=== PATIENT | female | born 1990 | race Caucasian/White ===

== ENCOUNTER 2021-03-31 07:07 | Outpatient (REF) | payer OTHER, SELFPAY ==
[2021-03-31 07:26] LABS: MANUAL DIFF FLAG NO
[2021-03-31 08:18] LABS: Basophils Percent Auto 0.5 % (0-2); Eosinophils Absolute Auto 0.2 X10*3/uL (0.0-0.4); Eosinophils Percent Auto 3.1 % (0-4); Hematocrit 43.8 % (37.0-47.0); Hemoglobin 14.4 g/dl (12.0-16.0); Imm Gran Abs Auto 0.02 X10*3/uL (0.00-0.03); Imm Gran Pct Auto 0.3 % (0.0-0.4); Lymphocytes Absolute Auto 2.6 X10*3/uL (1.2-4.9); Lymphocytes Percent Auto 35.4 % (20-40); Mean Corpuscular HGB Conc 32.9 g/dl (31.0-35.0); Mean Corpuscular Hemoglobin 29.1 pg (27.0-33.0); Mean Corpuscular Volume 88.7 fL (80.0-98.0); Mean Platelet Volume 9.8 fL (9.4-12.3); Monocytes Absolute Auto 0.5 X10*3/uL (0.1-1.2); Monocytes Percent Auto 6.7 % (2-11); Platelet Count 250 X10*3/uL (160-400); Red Blood Count 4.94 X10*6/uL (4.20-5.50); Red Cell Distribution Width 11.8 % (11.0-16.0); White Blood Count 7.5 X10*3/uL (4.8-10.8)
[2021-03-31 08:41] LABS: Alanine Aminotransferase 21 U/L (0-31); Albumin Level 4.5 g/dL (3.5-5.0); Alkaline Phosphatase 85 U/L (39-117); Anion Gap 15 (12-20); Aspartate Amino Transferase 17 U/L (5-31); Bilirubin Total 0.6 mg/dL (0.0-1.0); Blood Urea Nitrogen 11 mg/dL (9-16); Calcium 9.6 mg/dL (8.4-10.2); Carbon Dioxide 25 mmol/L (22-29); Chloride 105 mmol/L (96-108); Cholesterol 182 mg/dL; Estimated Glomerular Filt Rate > 60; Glucose Fasting 97 mg/dL (60-99); HDL Cholesterol 50 mg/dL; LDL Cholesterol Calculated 122 mg/dl; Potassium 4.6 mmol/L (3.3-5.1); Sodium 140 mmol/L (135-145); Total Protein 7.3 g/dL (6.5-8.0); Triglycerides 51 mg/dL
[2021-03-31 12:00] LABS: HIV AB/AG Nonreactive (Nonreactive); HIV Num 1 0.05 S/CO (0.00-0.99)
[2021-03-31 12:07] LABS: ~HepC Num1 0.08 S/CO (0.00-0.79); ~Hepatitis C Antibody Nonreactive (Nonreactive)
[2021-03-31 12:27] LABS: CT PCR NOT DETECTED (Not Detect.)
[2021-03-31 12:28] LABS: NG PCR NOT DETECTED (Not Detect.)
[2021-04-02 09:01] LABS: Syphilis Screen Nonreactive (Nonreactive)
== END 2021-03-31 07:08 | disposition home or self-care (01) ==
LOC: HO.LAB 07:07
PROVIDERS: Visit Provider Nurse Practitioner Family
DX: M79.7 Fibromyalgia (principal); I10 Essential (primary) hypertension; E78.00 Pure hypercholesterolemia, unspecified; Z11.3 Encounter for screening for infections with a predominantly sexual mode of transmission; Z76.89 Persons encountering health services in other specified circumstances
CPT/HCPCS: 80053; 80061; 84443; 85025; 86780; 86803; 87389; 87491; 87591

== ENCOUNTER 2021-07-18 10:59 | Outpatient (REF) | payer OTHER, SELFPAY ==
--- NOTE | ~2021-07-18 | XR_ITS ---
EXAMINATION: XR FOOT, LEFT CLINICAL INFORMATION: Pain in the left foot COMPARISON: None TECHNIQUE: AP, lateral, and oblique views of the left foot. FINDINGS: There is a nondisplaced fracture of the shaft of the fifth digit proximal phalanx. No additional fractures. Joint spaces are maintained. Mild soft tissue swelling in the region of the fracture. XR/XR foot LT 2V IMPRESSION: Nondisplaced fracture of the shaft of the fifth digit proximal phalanx. The report will be called to the ordering clinician by a [facility] Workflow Coordinator.
== END 2021-07-18 11:00 | disposition home or self-care (01) ==
LOC: HO.XRAY 10:59
PROVIDERS: PCP Nurse Practitioner Family; Visit Provider Nurse Practitioner Family
DX: M79.672 Pain in left foot (principal)
CPT/HCPCS: 73620

== ENCOUNTER → 2021-08-03 08:35 | Outpatient (BNVA) | payer OTHER, SELFPAY | PROVIDERS: PCP Nurse Practitioner Family; Visit Provider Physician Assistant | DX: Z13.89 Encounter for screening for other disorder (principal) ==

== ENCOUNTER 2021-11-15 09:17 | Outpatient (REF) | payer OTHER, SELFPAY ==
--- NOTE | ~2021-11-15 | XR_ITS ---
EXAMINATION: XR FINGER, RIGHT CLINICAL INFORMATION: Injury of right wrist pain in fingers COMPARISON: None TECHNIQUE: Three views of the right ring finger. FINDINGS: No acute visible fracture or dislocation. Joint spaces and alignment are maintained. Soft tissues are unremarkable. XR/XR finger RT min 2V IMPRESSION: No acute visible fracture or dislocation.
== END 2021-11-15 09:18 | disposition home or self-care (01) ==
LOC: HO.HMGCX 09:17
PROVIDERS: PCP Nurse Practitioner Family; Visit Provider Internal Medicine
DX: S69.91XA Unspecified injury of right wrist, hand and finger(s), initial encounter (principal)
CPT/HCPCS: 73140

== ENCOUNTER 2022-01-25 18:49 | Outpatient (REF) | payer OTHER, SELFPAY ==
--- NOTE | ~2022-01-25 | MR_ITS ---
EXAMINATION: MRI HAND WITHOUT CONTRAST, RIGHT CLINICAL INFORMATION: Right 4th digit limited range of motion. Swelling. Injury. COMPARISON: Right finger radiographs dated 11/15/2021. TECHNIQUE: Multisequence MR imaging of the right hand was obtained without contrast on a high-field strength scanner. FINDINGS: BONE: Minimally increased degenerative signal within the distal aspect of the 4th middle phalanx as well as the 4th distal phalanx without an associated osseous erosion. No fracture or dislocation. No concerning lytic or blastic osseous lesion. MUSCLES/TENDONS: Trace fluid within the 4th and 5th flexor digitorum tendon sheath consistent with minimal tenosynovitis. No transverse tendon tear or tendon retraction. LIGAMENTS: Grossly intact collateral ligaments. SOFT TISSUES: No soft tissue mass or fluid collection. MR/MR hand RT wo con IMPRESSION: 1. Minimal marrow edema within the distal aspect of the 4th middle phalanx as well as the 4th distal phalanx without an associated osseous erosion. Findings could indicate a mild infectious or inflammatory arthropathy. No associated fracture or dislocation. 2. Minimal 4th and 5th flexor digitorum tenosynovitis. No transverse tendon tear or tendon retraction.
== END 2022-01-25 18:50 | disposition home or self-care (01) ==
LOC: HO.MRI 18:49
PROVIDERS: Visit Provider Physician Assistant
DX: S69.91XA Unspecified injury of right wrist, hand and finger(s), initial encounter (principal); M62.89 Other specified disorders of muscle; X58.XXXA Exposure to other specified factors, initial encounter; Y93.9 Activity, unspecified; Y92.9 Unspecified place or not applicable; Y99.9 Unspecified external cause status
CPT/HCPCS: 73218

== ENCOUNTER 2022-05-16 13:30 | Outpatient (RCR) | payer OTHER, SELFPAY ==
--- NOTE | 2022-04-25 14:18 | MHC.OT.EP ---
[address] [phone] Occupational Therapy Plan of Care Date of Evaluation: 04/25/22 Diagnosis: Right ring finger injury Pain Location: Pain right ring finger DIP 0/10 at rest 5/10 with activity Pain Score: 5 Pain Scale Used: Numeric (0 - 10) Aggravating Factors: Any cardio exercises makes the digit throb Forceful grasp Alleviating Factors: Heat/ice Nothing recently Assessment: Pt. is a 31 y/o female who sustained right ring finger injury while playing softball. X-rays were negative; MRI revealed possible mild infectious or inflammatory arthropathy. No associated fracture or dislocation. There was a lapse in treatment unfortunately since date of referral on 02/13; pt. continues to experience up to 5/10 pain and stiffness in DIP joint. Pt would benefit from skilled OT for pain and inflammation management, ROM, and improving fine motor coordination. Frequency and Duration: The patient will be seen 2x/wk for 3 weeks Short Term Goals: Pain free with typing and handwriting Improve right DIP flexion by 15 degrees Improve FMC as evidenced by >5 sec improvement on FDT IND with progression of HEP Snf Goals: Same as above Treatment Plan: Therapeutic Exercise Therapeutic Activity Home Exercise Program Patient Education Edema Control Ultrasound Paraffin Fluidotherapy MHP Joint Mobilization Soft Tissue Mobilization Electronically Signed By: Garima Beth MS OTR/L Please Sign and return to therapist. Thank you once again for your referral.
--- NOTE | 2022-05-16 14:12 | MHC.OT.DC ---
[address] [phone] F: [phone] Occupational Therapy Discharge Note Provider: Armand Conde Diagnosis: Right ring finger injury Date of Evaluation: 04/25/22 Date of Discharge: 05/16/22 Treatments to Date: 6 Discharge Status: Achieved Goals Independent with HEP Discharge Summary: Pt progressed very in OT and met all LTG's set on admission. She continues to have some residual 'soreness' with prolonged use, although is pain free at rest. Digit ROM is WNL's and she is able to make a full composite fist without pain. Gross grasp strength improved to 65# on the R, compared to 75# on the L. At this time, pt. is IND with home exercise program and in agreement with discharge. Electronically Signed By: Garima Beth MS OTR/L Reviewed/agree with student documentation: N/A Therapist: Please Sign and return to therapist, thank you for your referral.
== END 2022-08-13 09:13 | disposition home or self-care (01) ==
LOC: HO.OT 13:30
PROVIDERS: PCP Nurse Practitioner Family; Visit Provider Physician Assistant
DX: S69.91XD Unspecified injury of right wrist, hand and finger(s), subsequent encounter (principal)
CPT/HCPCS: 97035; 97110; 97165; 97530

== ENCOUNTER 2022-07-09 10:00 | Outpatient (RCR) | payer OTHER, SELFPAY ==
--- NOTE | 2022-07-09 11:26 | MHC.PT.DC ---
[facility] [place] Office [place] Office [place] Office [address] Radha Benton [address] [phone] F: [phone] F: [phone] F: [phone] F: [phone] Physical Therapy Discharge Report Diagnosis: RIGHT KNEE PAIN (KP) Date of Surgery: NA Date of Evaluation: 05/03/22 Date of Discharge: 07/09/22 Treatments to Date: 11 Cancellations to Date: 6 No Shows to Date: 1 Discharge Status: Achieved Goals Improved Function Independent with HEP Discharge Summary: Pt HAS PROGRESSED VERY NICELY IN PT AND HAS MET HER PT GOALS AT THIS TIME -> SHE HAS BEEN ABLE TO RETURN TO RUNNING AND REG ADLs W/O HER Rt KNEE SXS- HER FLEXIB AND STRENGTH AND SYMMETRY ARE OVERALL IMPROVED - SHE IS MOTIVATED AND COMPLIANT W HER HEP AND SHE FEELS READY FOR D/C FROM PT W HER HEP. HER LEFI SCORE IMPROVED FROM 65/80 AT EVAL TO 78/80 TODAY AT D/C. Electronically signed by: JENNIFER ALVARADO,PT Please sign and return to therapist. Thank you for your referral.
== END 2022-07-10 09:25 | disposition home or self-care (01) ==
LOC: HO.PT 10:00
PROVIDERS: Visit Provider Nurse Practitioner Family
DX: M25.561 Pain in right knee (principal)
CPT/HCPCS: 97110; 97140; 97161

== ENCOUNTER 2023-06-03 08:17 | Outpatient (AMB) | payer OTHER, SELFPAY ==
--- NOTE | 2023-06-03 08:18 | A.OFFPC_ITS ---
Vital Signs 06/03/23 08:23 Height 5 ft 6 in Weight 197 lb 6 oz BMI 31.9 BP 112/68 Blood Pressure Location Lt brachial Position Sitting Pulse 64 Pulse Source Pulse Oximeter Pulse Oximetry (%) 98 Oxygen Delivery Method Room Air Intake Visit Reasons: transfer from [facility] [place], physical Intake Note: Patient is here as a transfer from [facility], would like blood work done, she has been feeling cold, not like her,has to use extra blankets, during . Allergies iodine Allergy (Intermediate, Verified 06/03/23 08:42) rash Latex Gloves Allergy (Unknown, Uncoded 06/03/23 08:25) rash Shellfish Allergy (Unknown, Uncoded 06/03/23 08:25) tongue swelling; throat felt funny Medication List - Last Reconciled 06/03/23 by Lis Gipson, ISHAAN-BC norethindrone (contraceptive) (Salma) 0.35 mg PO DAILY prenat.vits,seth,xcc-fric-vwhtm 1 tab PO DAILY valacyclovir 500 mg PO DAILY Tobacco use date assessed: 06/03/23 Dental Screening Dental Screen Date: 06/03/23 Did you have a dental visit in the last 12 months?: Yes Did you have a dental problem in the last 6 months where you did not have access to dental care?: No Was dental information given to patient?: Patient has dentist HPI HPI Comments History of Present Illness Details 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 32-year-old female with fibromyalgia, po stpartum depression, herniated cervical disc, scoliosis, HSV 2 Health maintenance Pap 01/04/2021 within normal limits Specialists Orthopedics Manager [facility] Counselor Podiatry - did not go. Dermatology - annual survellience Chiro Rheum - active in [place] in the past about 8 years ago. Family hx: 3 toddlers + 2.5 month old baby (oldest son w/ benign stills murmur, cleared by cards) Mom hypothyroid, HLD, mitral valve regurg Dad skin cancer, HTN Sister Immune mediated thrombocytopenia Brother alive and well MGF 96 of bladder cancer MGM 96 dementia Maternal aunt - [place], Fibromyalgia, cardiac stuff, obesity Denies sig hx in grandparents on Dads side. Labs 03/31/2021 showed a normal CBC, normal CMP, normal lipid profile, normal TSH, negative STD workup Here today to est care Feeling cold all of the time; reports this only happens when she is . Reports normal labs during . Physically in pain so cold During the day, performs squats to get blood moving. Had baby 2.5 months ago. Not breast feeding/pumping. LMP current, no chance of . No labs done in post period. Has not worked w/ UNIX ENGINEER about this. 206 prepreg weight gained 20 lbs w/ this preg doesnt feel like she is losing weight Decreased appetite Reports normal activity - runs a few times per week. Mood - admits some PPD sx (decreased appetite). reports this has subsided. Active w/ counselor Q week Chronic feet pain - manages w/ wearing slippers. Did not see podiatry. Admits chronic pain in joints. Active w/ chiro for back. FM - dx about 8 years ago., Was tx. However been off meds and managing just fine. ? dx. [facility] Medical History Tachycardia Right knee pain Entrapment of collateral ligament of finger Injury of right ring finger Left foot pain Acquired supination of right foot Nondisplaced fracture of phalanx of toe of left foot Post depression Encounter to establish care (~03/29/21) Scoliosis Fibromyalgia Herniated cervical disc Surgical History No pertinent past surgical history Family History Mother Hypothyroidism Hyperlipidemia Arthritis Asthma Murmur Father HTN (hypertension) Other Bladder cancer Social History Household Members: Children Housing: House Alcohol intake: never Patient Tobacco Use Status: Never used Tobacco e-Cigarette/Vaping Use: Never Used service: No Current occupational status: employed 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 1. Little interest or pleasure in doing things: not at all 2. Feeling down, depressed, or hopeless: not at all 3. Trouble falling or staying asleep, or sleeping too much: several days 4. Feeling tired or having little energy: several days 5. Poor appetite or overeating: not at all 6. Feeling bad about yourself - or that you are a failure or have let yourself or your family down: not at all 7. Trouble concentrating on things, such as reading the newspaper or watching television: several days 8. Moving or speaking so slowly that other people could have noticed. Or the opposite - being so fidgety or restless that you have been moving around a lot more than usual: not at all 9. Thoughts that you would be better off or of hurting yourself in some way: not at all Total score: 3 Depression Screening Interpretation: Negative Depression Screening Done: Yes 96112 - PHQ-9 Billing: Yes Source: Developed by Drs. Manuelito Luna, Karla Oneal, Ferny Beauchamp and colleagues, with an educational otilio from [employer]. Thrive Questionnaire Date Thrive assessed: 06/03/23 I am a: Patient What is your living situation today?: I have a steady place to live Within the past 12 months, did the food you bought not last and you didn't have the money to get more?: Never true Within the past 12 months, did you worry whether your food would run out before you got money to buy more?: Never true Do you have trouble paying for medicines?: No Do you have trouble getting transportation to medical appointments?: No Do you have trouble paying your heating and electricity bill?: No Do you have trouble taking care of your child, family member or friend?: No Do you have trouble with day-to-day activities such as bathing, preparing meals, shopping, managing finances, etc.?: No Are you currently unemployed and looking for a job?: No Are you interested in more education?: No Currently or been in a relationship where the following occur: no concerns reported THRIVE Score: 0 AUDIT C Alcohol Use Questionnaire (AUDIT-C) 1. How often do you have a drink containing alcohol?: Monthly or less 2. How many drinks containing alcohol do you have on a typical day when you are drinking?: 1 or 2 3. How often do you have six or more drinks on one occasion?: Never Total Score: 1 Score Reviewed/Action Taken: Yes SHALINI-7 AMB Questionnaire SHALINI-7 Date SHALINI - 7 assessed: 06/03/23 Feeling nervous, anxious, or on edge: 0 = Not at all Not being able to stop or control worryin = Several days Worrying too much about different things: 0 = Not at all Trouble relaxin = Several days Being so restless that it is hard to sit still: 0 = Not at all Becoming easily annoyed or irritable: 1 = Several days Feeling afraid as if something awful might happen: 0 = Not at all Total SHALINI-7 score (0-4 normal; 5-9 mild; 10-14 moderate; 15-21 severe): 3 Source: Developed by Drs. Manuelito Luna, Karla Oneal, Ferny Beauchamp and colleagues, with an educational otilio from [employer]. SHALINI-7 Assessment Billing SHALINI-7 Assessment Tool: SHALINI-7 Assessment 49610 Physical exam (Primary Care) Vital Signs: Last Vital Signs Pulse 64 06/03/23 08:23 BP 112/68 06/03/23 08:23 Pulse Ox 98 06/03/23 08:23 Oxygen Delivery Method Room Air 06/03/23 08:23 BMI result Body Mass Index 31.9 BMI Assessment/Plan discussion: High BMI High, discussed plan: physical activity Tobacco/Smoking Status: Tobacco use Status Tobacco use date assessed 06/03/23 06/03/23 08:33 Patient Tobacco Use Status Never used Tobacco 06/03/23 08:20 e-Cigarette/Vaping Use Never Used 06/03/23 08:20 PHQ-9: PHQ-9 Score PHQ-9: Total score 3 06/03/23 08:33 Depression Screening Interpretation: Negative Thrive Assessment: Date of Thrive Assessment Date Thrive assessed 06/03/23 06/03/23 08:33 Currently or been in a relationship where the following occur: no concerns reported Const Other: awake alert NAD PERRLA, EOMI MMM thyroid palpable, nontender, no nodules, trachea midline RRR LS CTAB No edema BLE Mood and affect appropriate Assessment and Plan Assessment & Plan (1) Sensation of feeling cold: Code(s): R68.89 - Other general symptoms and signs Plan: We will check CBC, iron studies, thyroid labs to include antibodies. She is 2- 1/2 months . thyroiditis is definitely a differential. We will update her via the portal with the lab results. If labs are within normal limits we will need to consider alternative differentials and or treatment plan to evaluate this concern. (2) MDD (major depressive disorder), recurrent episode: Comment: Symptoms controlled without medications. Active with a counselor weekly. Code(s): F33.9 - Major depressive disorder, recurrent, unspecified Qualifiers: Major depression episode severity: mild Qualified Code(s): F33.0 - Major depressive disorder, recurrent, mild (3) HSV (herpes simplex virus) infection: Comment: Maintained on valacyclovir 500 mg p.o. daily Code(s): B00.9 - Herpesviral infection, unspecified Plan This note is constructed using voice recognition software. While every effort has been made to ensure accuracy in healthcare recruiter, still errors may have been included Sometimes, these errors may affect the content or meaning of the given sentence . Total time spent caring for the patient today was 45 minutes. This includes time spent before the visit reviewing the chart, time spent during the visit, and time spent after the visit on documentation Orders: Orders Comprehensive [place]. Panel Fast Today R68.89 - Other general symptoms and signs Complete Blood Count Auto Diff Today R68.89 - Other general symptoms and signs Thyroid Peroxidase Antibodies Today R68.89 - Other general symptoms and signs Thyroglobulin Antibodies Today R68.89 - Other general symptoms and signs Thyroid Stimulating Immunoglob Today R68.89 - Other general symptoms and signs Thyroxine Binding Globulin Today R68.89 - Other general symptoms and signs Vitamin D 1,25 dihydroxy Today R68.89 - Other general symptoms and signs TSH reflex Free T4 Today R68.89 - Other general symptoms and signs IRON PROFILE Today R68.89 - Other general symptoms and signs Free T4 (Free Thyroxine) Today R68.89 - Other general symptoms and signs Thyrotropin Receptor Antibody Today R68.89 - Other general symptoms and signs Coding Level of Care Code Est Pt Level 5 (93679) Diagnoses Sensation of feeling cold R68.89 Mild episode of recurrent major depressive disorder F33.0 Major depression episode severity: mild HSV (herpes simplex virus) infection B00.9 Additional Codes SHALINI-7 Assessment Billing - SHALINI-7 Assessment Tool: SHALINI-7 Assessment 64145 ([id number])
[2023-06-03 08:23] VITALS: BP 112/68; PULSE 64; O2SAT 98; BMI 31.9
== END 2023-06-03 09:20 | disposition home or self-care (01) ==
PROVIDERS: PCP Nurse Practitioner Family; Visit Provider Nurse Practitioner Family
DX: R68.89 Other general symptoms and signs (principal); F33.0 Major depressive disorder, recurrent, mild; B00.9 Herpesviral infection, unspecified
CPT/HCPCS: 99215

== ENCOUNTER 2023-06-03 09:02 | Outpatient (REF) | payer OTHER, SELFPAY ==
[2023-06-03 11:32] LABS: MANUAL DIFF FLAG NO
[2023-06-03 11:39] LABS: Basophils Percent Auto 0.7 % (0-2); Eosinophils Absolute Auto 0.2 X10*3/uL (0.0-0.4); Hematocrit 42.6 % (37.0-47.0); Hemoglobin 14.2 g/dl (12.0-16.0); Imm Gran Abs Auto 0.01 X10*3/uL (0.00-0.03); Imm Gran Pct Auto 0.2 % (0.0-0.4); Lymphocytes Absolute Auto 2.1 X10*3/uL (1.2-4.9); Lymphocytes Percent Auto 37.3 % (20-40); Mean Corpuscular HGB Conc 33.3 g/dl (31.0-35.0); Mean Corpuscular Volume 90.1 fL (80.0-98.0); Mean Platelet Volume 10.5 fL (9.4-12.3); Monocytes Absolute Auto 0.4 X10*3/uL (0.1-1.2); Monocytes Percent Auto 7.3 % (2-11); Neutrophils Absolute Auto 2.9 x10*3/uL (2.0-8.3); Neutrophils Percent Auto 51.5 % (45-73); Platelet Count 251 X10*3/uL (160-400); Red Blood Count 4.73 X10*6/uL (4.20-5.50); Red Cell Distribution Width 11.8 % (11.0-16.0); White Blood Count 5.6 X10*3/uL (4.8-10.8)
[2023-06-03 12:19] LABS: Alanine Aminotransferase 42 U/L (0-31); Albumin Level 4.4 g/dL (3.5-5.0); Alkaline Phosphatase 74 U/L (39-117); Anion Gap 12 (12-20); Aspartate Amino Transferase 29 U/L (5-31); Bilirubin Total 0.5 mg/dL (0.0-1.0); Blood Urea Nitrogen 12 mg/dL (9-16); Calcium 9.2 mg/dL (8.4-10.2); Carbon Dioxide 28 mmol/L (22-29); Chloride 106 mmol/L (96-108); Estimated Glomerular Filt Rate > 60; Glucose Fasting 94 mg/dL (60-99); Iron 71 mcg/dL (30-160); Percent Iron Saturation 25 % (15-50); Potassium 4.3 mmol/L (3.3-5.1); Sodium 142 mmol/L (135-145); Total Iron Binding Capacity 281 mcg/dL (228-428); Total Protein 7.4 g/dL (6.5-8.0); Unsaturated Iron Binding 210 ug/dL
[2023-06-03 12:21] LABS: Free T4 (Free Thyroxine) 0.91 ng/dL (0.71-1.85); TSH reflex Free T4 1.31 uIU/mL (0.32-4.0)
[2023-06-04 22:19] LABS: Thyroglobulin Antibodies <1 IU/mL (< or = 1); Thyroid Peroxidase Antibodies 1 IU/mL (<9)
[2023-06-06 15:58] LABS: Thyroid Stimulating Immunoglob <89 % baseline (<140)
[2023-06-07 17:14] LABS: VITAMIN D (1,25 OH) D3 25 pg/mL; Vit D (1,25-Dihydroxy) Total 25 pg/mL (18-72); Vitamin D (1,25 OH) D2 <8 pg/mL
[2023-06-08 06:44] LABS: Thyroxine Binding Globulin 18.7 mcg/mL (13.5-30.9)
== END 2023-06-03 09:03 | disposition home or self-care (01) ==
LOC: HO.WFDLDS 09:02
PROVIDERS: Visit Provider Nurse Practitioner Family
DX: R68.89 Other general symptoms and signs (principal)
CPT/HCPCS: 36415; 80053; 82652; 83520; 83540; 84439; 84442; 84443; 84445; 85025; 86376; 86800

== ENCOUNTER 2023-09-03 07:38 | Outpatient (AMB) | payer OTHER, SELFPAY ==
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
[2023-09-03 07:56] VITALS: BP 112/64; PULSE 86; O2SAT 98; BMI 29.9
== END 2023-09-03 08:10 | disposition home or self-care (01) ==
PROVIDERS: PCP Nurse Practitioner Family; Visit Provider Nurse Practitioner Family
DX: Z00.01 Encounter for general adult medical examination with abnormal findings (principal); Z09 Encounter for follow-up examination after completed treatment for conditions other than malignant neoplasm; E55.9 Vitamin D deficiency, unspecified; R76.8 Other specified abnormal immunological findings in serum; R05.1 Acute cough
CPT/HCPCS: 99213; 99395

== ENCOUNTER 2023-09-09 10:26 | Outpatient (AMB) | payer OTHER, SELFPAY ==
[2023-09-09 10:29] VITALS: BP 118/74; PULSE 76; TEMP 36.7; O2SAT 98; BMI 30.8
--- NOTE | 2023-09-09 10:29 | MHC.OFFWIV ---
Intake Vital Signs 09/09/23 10:29 Height 5 ft 6 in Weight 191 lb BMI 30.8 BP 118/74 Blood Pressure Location Lt brachial Position Sitting Pulse 76 Pulse Source Pulse Oximeter Temp 98.0 F Temp Source Temporal Artery Scan Pulse Oximetry (%) 98 Intake Visit Reasons: EP Left Heel Laceration Intake Note: pt is here for left heel laceration Patient Tobacco Use Status: Never used Tobacco Allergies iodine Allergy (Intermediate, Verified 09/09/23 10:29) rash Latex Gloves Allergy (Unknown, Uncoded 06/03/23 08:25) rash Shellfish Allergy (Unknown, Uncoded 06/03/23 08:25) tongue swelling; throat felt funny Do you need a note to return to daycare/school/sports/work: No HPI HPI Comments History of Present Illness Details Patient is a 32-year-old female who states she was helping her built metal fence this morning when 1 of the pieces from the fence went into left ankle, cutting it. She is able to walk and has full range of motion with her foot. Last tetanus was last year, she states. [facility] Medical History Tachycardia Right knee pain Entrapment of collateral ligament of finger Injury of right ring finger Left foot pain Acquired supination of right foot Nondisplaced fracture of phalanx of toe of left foot Post depression Encounter to establish care (~03/29/21) Scoliosis Fibromyalgia Herniated cervical disc Surgical History No pertinent past surgical history Family History Mother Hypothyroidism Hyperlipidemia Arthritis Asthma Murmur Father HTN (hypertension) Other Bladder cancer Social History Household Members: Children Housing: House Alcohol intake: never Patient Tobacco Use Status: Never used Tobacco e-Cigarette/Vaping Use: Never Used service: No Current occupational status: employed 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 Current occupational exposures/hazards: No Cognitive needs: No Hearing needs: No Vision needs: Yes Review of Systems Const All systems reviewed & are unremarkable except as noted in HPI and below Physical Exam Const General: cooperative, healthy appearing, comfortable, no acute distress and well developed Orientation/consciousness: patient oriented x3 Limitations: no limitations Eyes General: appearance normal, both eyes and all related structures Resp Effort & Inspection: normal respiratory effort and able to speak in complete sentences Skin Other: Neuro General: patient oriented x3 Extrem Left lower extremity: ankle Details: no edema, normal ROM and laceration (2.5cm lac to medial aspect of ankle); no tenderness and no warmth Office Procedures Laceration Repair Details: cleaned area with betadine, irrigated the area with normal saline, then we cleaned with Betadine again. Applied topical 4% lidocaine spray then injected 2 mL of 2% lidocaine with good effect. Using sterile technique, applied 3 sutures which closed the wound. Laceration repair performed by: Nina Pavon Explained risks and benefits to parent: Yes Informed consent given: Yes Consent signed: No Sedation: No Anesthesia: 2% lidocaine Irrigation: saline Preparation: betadine Wound exploration: none (no FB noted) Deep closure: No Skin closure: nylon (4.0 prolene) Technique: sterile Topical treatment: other (Applied sterile gauze with tape to cover wound for the next hour and contain any residual bleeding) Tetanus toxoid ordered: No (last was 2022) Patient tolerated procedure: well [place]: [place] [id number] Repair <2.5cm Procedure code (CPT) selection complete Assessment & Plan Assessment & Plan (1) Laceration of ankle without complication: Code(s): S91.019A - Laceration without foreign body, unspecified ankle, initial encounter Qualifiers: Encounter type: initial encounter Laterality: left Qualified Code(s): S91.012A - Laceration without foreign body, left ankle, initial encounter Plan: Applied 3 sutures, recommended keeping dry and clean and not bathing or swimming in any standing water until sutures are removed. Recommended removing sutures in 10-12 days and keeping area clean and dry. Plan see above. Coding Level of Care Code Est Pt Level 3 (57305) Diagnoses Laceration of left ankle without complication, initial encounter S91.012A Encounter type: initial encounter Laterality: left
== END 2023-09-09 11:35 | disposition home or self-care (01) ==
PROVIDERS: PCP Nurse Practitioner Family; Visit Provider Physician Assistant
DX: S91.012A Laceration without foreign body, left ankle, initial encounter (principal)
CPT/HCPCS: 12001; 99213

== ENCOUNTER 2023-09-19 09:29 | Outpatient (AMB) | payer OTHER, SELFPAY ==
--- NOTE | 2023-09-19 10:20 | AM.OFFWIN_ITS ---
Intake Vital Signs 09/19/23 10:21 Height 5 ft 6 in BP 118/70 Blood Pressure Location Rt brachial Position Sitting Pulse 76 Pulse Source Pulse Oximeter Temp 98.4 F Temp Source Oral Pulse Oximetry (%) 97 Intake Visit Reasons: EP lft foot stitches removal Intake Note: pt is here for left foot stitches removal Patient Tobacco Use Status: Never used Tobacco Allergies iodine Allergy (Intermediate, Verified 09/19/23 10:21) rash Latex Gloves Allergy (Unknown, Uncoded 06/03/23 08:25) rash Shellfish Allergy (Unknown, Uncoded 06/03/23 08:25) tongue swelling; throat felt funny Do you need a note to return to daycare/school/sports/work: No HPI HPI Comments History of Present Illness Details Patient is a 33-year-old female here for suture removal, she had 3 sutures applied 11 days ago. She states it has healed well and does not look infected at all, she states there is no pain. [facility] Medical History Tachycardia Right knee pain Entrapment of collateral ligament of finger Injury of right ring finger Left foot pain Acquired supination of right foot Nondisplaced fracture of phalanx of toe of left foot Post depression Encounter to establish care (~03/29/21) Scoliosis Fibromyalgia Herniated cervical disc Surgical History No pertinent past surgical history Family History Mother Hypothyroidism Hyperlipidemia Arthritis Asthma Murmur Father HTN (hypertension) Other Bladder cancer Social History Household Members: Children Housing: House Alcohol intake: never Patient Tobacco Use Status: Never used Tobacco e-Cigarette/Vaping Use: Never Used service: No Current occupational status: employed 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 Current occupational exposures/hazards: No Cognitive needs: No Hearing needs: No Vision needs: Yes Review of Systems Const All systems reviewed & are unremarkable except as noted in HPI and below Physical Exam Vital Signs: Last Vital Signs Temp 98.4 F 09/19/23 10:21 Pulse 76 06/28/24 10:21 BP 118/70 09/19/23 10:21 Pulse Ox 97 09/19/23 10:21 Const General: cooperative, healthy appearing, comfortable, no acute distress and well developed Orientation/consciousness: patient oriented x3 Limitations: no limitations Skin Other: Three sutures on left posterior ankle, wound is healed well, no erythema warmth or discharge noted Neuro General: patient oriented x3 Assessment & Plan Assessment & Plan (1) Encounter for removal of sutures: Code(s): Z48.02 - Encounter for removal of sutures Plan: Removed 3 sutures, wound is clean dry and intact, no signs of infection. Plan See above Coding Level of Care Code Est Pt Level 3 (17560) Diagnoses Encounter for removal of sutures Z48.02
[2023-09-19 10:21] VITALS: BP 118/70; PULSE 76; TEMP 36.9; O2SAT 97
== END 2023-09-19 11:00 | disposition home or self-care (01) ==
PROVIDERS: PCP Nurse Practitioner Family; Visit Provider Physician Assistant
DX: Z48.02 Encounter for removal of sutures (principal)
CPT/HCPCS: 15853; 99213

== ENCOUNTER 2023-10-10 09:49 | Outpatient (AMB) | payer OTHER, SELFPAY ==
--- NOTE | 2023-10-10 09:53 | AM.OFFWIN_ITS ---
Intake Vital Signs 10/10/23 09:54 Height 5 ft 6 in Weight 189 lb BMI 30.5 BP 126/84 Blood Pressure Location Rt brachial Position Sitting Pulse 78 Pulse Source Pulse Oximeter Temp 97.4 F Temp Source Temporal Artery Scan Pulse Oximetry (%) 98 Oxygen Delivery Method Room Air Intake Visit Reasons: EP RT foot pain Intake Note: pt is here c/o RT foot pain. Playing softball yesterday. [place] Patient Tobacco Use Status: Never used Tobacco Allergies iodine Allergy (Intermediate, Verified 10/10/23 09:54) rash Latex Gloves Allergy (Unknown, Uncoded 10/10/23 09:54) rash Shellfish Allergy (Unknown, Uncoded 10/10/23 09:54) tongue swelling; throat felt funny Do you need a note to return to daycare/school/sports/work: No HPI HPI Comments History of Present Illness Details 33 y/o female patient who presents to [facility] in clinic with c/o right foot pain. Reports pain located on the bottom (plantar) of right foot. Describes the pain as sharp, and worse with walking. She was playing Softball yesterday, when she noticed the pain. [facility] Medical History Tachycardia Right knee pain Entrapment of collateral ligament of finger Injury of right ring finger Left foot pain Acquired supination of right foot Nondisplaced fracture of phalanx of toe of left foot Post depression Encounter to establish care (~03/29/21) Scoliosis Fibromyalgia Herniated cervical disc Surgical History No pertinent past surgical history Family History Mother Hypothyroidism Hyperlipidemia Arthritis Asthma Murmur Father HTN (hypertension) Other Bladder cancer Social History Household Members: Children Housing: House Alcohol intake: never Patient Tobacco Use Status: Never used Tobacco e-Cigarette/Vaping Use: Never Used service: No Current occupational status: employed 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 Current occupational exposures/hazards: No Cognitive needs: No Hearing needs: No Vision needs: Yes Review of Systems Const All systems reviewed & are unremarkable except as noted in HPI and below Physical Exam Vital Signs: Last Vital Signs Temp 97.4 F 10/10/23 09:54 Pulse 78 10/10/23 09:54 BP 126/84 10/10/23 09:54 Pulse Ox 98 10/10/23 09:54 Oxygen Delivery Method Room Air 10/10/23 09:54 BMI result Body Mass Index 30.5 Const General: comfortable and no acute distress Orientation/consciousness: patient oriented x3 Neuro General: patient oriented x3, gait normal and moves all extremities Extrem Right lower extremity: foot Details: normal capillary refill, normal to inspection, tenderness Location: of the plantar foot Location: distally, toes with normal ROM and no edema; no unusual warmth, no laceration, no ecchymosis and no crepitus Left lower extremity: normal to inspection and full ROM Psych Speech and movement: Normal speech and movement present Assessment & Plan Assessment & Plan (1) Plantar fasciitis of right foot: Code(s): M72.2 - Plantar fascial fibromatosis Plan: Rest foot Wear comfortable shoes NSAIDs for pain relief Heat/Ice Medications: New ibuprofen 800 mg PO Q8H 30 tabs 0RF M72.2 - Plantar fascial fibromatosis Coding Level of Care Code Est Pt Level 3 (11432) Diagnoses Plantar fasciitis of right foot M72.2 Time Spent (min) 15
[2023-10-10 09:54] VITALS: BP 126/84; PULSE 78; TEMP 36.3; O2SAT 98; BMI 30.5
== END 2023-10-10 11:05 | disposition home or self-care (01) ==
PROVIDERS: PCP Nurse Practitioner Family; Visit Provider Nurse Practitioner Family
DX: M72.2 Plantar fascial fibromatosis (principal)
CPT/HCPCS: 99213

== ENCOUNTER 2024-05-10 09:26 | Outpatient (REF) | payer OTHER, SELFPAY ==
--- OUTSIDE RECORDS SUMMARY | 2024-05-10 10:23 | XMS_ITS | Encounter Summary ---
Author Organization [facility] Address [address] [place], [place] [id number] Care Team Providers Care Automatic Spreader Operator Name Role Phone Shalonda Hernandez MD Primary Care Provider [phone] Steven Henderson MD Unavailable [phone] Pcp, No Primary Care Provider Unavailabl e Encounter Details Date Type Department Care Team (Late st Contact Info) Description 12/02/2017 Scanned Document [address] [address] Shalonda Hernandez MD [address] [place] [phone] Social History Tobacco Use Types Packs/Day Years [...] on filedocumented in this encounter Care Teams Automatic Spreader Operator Relationship Specialty Start Date End Date Shalonda Hernandze MD 234 Dilshad Hernandez [address] [address] PCP - General 12/05/14 07/03/22 Pcp, No PCP - General General Medicine 07/04/22 Steven Henderson MD 1131 [facility] [address] [place] [address] Consulting Provider Rheumatology 02/14/15 documented as of this encounter
--- OUTSIDE RECORDS SUMMARY | 2024-05-10 10:23 | XMS_ITS | Encounter Summary ---
Author Organization [facility] Address [address] [place] [address] Care Team Providers Care Web Marketing Assistant Name Role Phone Shalonda Hernandez MD Primary Care Provider [phone] Steven Henderson MD Unavailable Pcp, No Primary Care Provider Unavailabl e Encounter Details Date Type Department Care Team ([facility] Contact Info) Description 02/14/2015 Scanned Document [address] [address] Provider, Generic Social History Tobacco Use Types [...] on filedocumented in this encounter Care Teams Web Marketing Assistant Relationship Specialty Start Date End Date Shalonda Hernandez MD 234 [facility] [address] [place] [address] PCP - General 12/05/14 07/03/22 Pcp, No PCP - General General Medicine 07/04/22 [place] [address] [place] [address] 1 [address] [place], [place] [address] Consulting Provider Rheumatology 02/14/15 documented as of this encounter
--- OUTSIDE RECORDS SUMMARY | 2024-05-10 10:23 | XMS_ITS | Clinical Summary ---
Author Organization [facility] Address [address] [place] [address] Care Team Providers Care Veneer Patcher Name Role Phone Steven Henderson MD Unavailable [phone] Pcp, No Primary Care Provider Unavailabl e [...] Date/Time Associated Diagnosis Comments THINPREP PAP TEST (CORE BLOWER OPERATOR) WITH HPV SCREEN Routine 03/11/2017 4:19 PM EST Screening for cervical cancer from Last 3 Months or Most Recently Relevant to Health Maintenance Results * ThinPrep Pap Test (Cafe Site Attendant) with HPV Screen (03/11/2017 4:19 PM EST) [...] has been evaluated with computer assisted technology. Museum Specialist: [facility] Comment: BK,CT(ASCP) CT screening location: [address] Hpv Mrna [id number] Not Detected Not Detected [facility] Comment: This test was performed using the APTIMA HPV Assay ([employer] ? This assay detects E6/E7 viral messenger RNA (mRNA) from 14 high-risk HPV types (16,18,31,33,35,39,45,51,52,56,58,59,66,68). 03/11/2017 4:19 PM EST 03/12/2017 7:24 AM EST Narrative Resulting Agency Comment Performing Organization Information: ?Site ID: [id number] ?Name: [employer] ?Address: [address] [place] [address], [place] [address] ?Director: Joaquín Phillip MD Shalonda Hernandez MD PATHOLOGY/CYTOLOGY O RDJOEY [facility] [address] [place] [address] from Last 3 Months or Most Recently Relevant to Health Maintenance Care Teams Veneer Patcher Relationship Specialty Start Date End Date Pcp, No PCP - General General Medicine 07/04/22 Steven Henderson MD 1131 [facility] [address] [place] [address] Consulting Provider Rheumatology 02/14/15
--- OUTSIDE RECORDS SUMMARY | 2024-05-10 10:23 | XMS_ITS | Encounter Summary ---
Author Organization [facility] Address [address] [place], [place] [id number] Care Team Providers Care Burring Machine Operator Name Role Phone Shalonda Hernandez MD Primary Care Provider [phone] Steven Henderson MD Unavailable [phone] Pcp, No Primary Care Provider Unavailabl e Encounter Details Date Type Department Care Team ([facility] Contact Info) Description 04/03/2019 Scanned Document [facility] NEUROSURGERY SCAN Neurosurgery, Scan Social [...] on filedocumented in this encounter Care Teams Burring Machine Operator Relationship Specialty Start Date End Date Shalonda Hernandez MD [address] [place] [address] [address] [place] [address] PCP - General 12/05/14 07/03/22 Pcp, No PCP - General General Medicine 07/04/22 Steven Henderson MD [address] [place] [address] [address] [place] [address] Consulting Provider Rheumatology 02/14/15 documented as of this encounter
--- OUTSIDE RECORDS SUMMARY | 2024-05-10 10:23 | XMS_ITS | Encounter Summary ---
Author Organization [facility] Address [address] [place] [address] Care Team Providers Care Sterile Processing Tech Name Role Phone Shalonda Hernandez MD Primary Care Provider [phone] Steven Henderson MD Unavailable [phone] Pcp, No Primary Care Provider Unavailabl e Encounter Details Date Type Department Care Team (Late st Contact Info) Description 06/19/[address] [phone] Shalonda Hernandez MD [address] [place] [address] Social History Tobacco Use Types Packs/Day [...] CALLING THE NUMBER GIVEN TO US BY GUARD SERGEANT STAFF; BUT IT WAS THE WRONG NUMBER. TRIED CALLING [facility] ON FILE IN ME THAT HAD AREA CODE [phone] & THAT WAS THE CORRECT NUMBER. INFORMED RP. * Telephone Encounter - Brissa Bettencourt RN - 06/19/2015 5:44 PM EDT ATTEMPTED TO CALL JADEN BACK BUT THEY CLOSED @ 4:30 PM. * Telephone Encounter - Shalonda Hernandez - 06/19/2015 5:18 PM EDT Per the [facility] website - last fill for tramadol was August 2014 Ok to fill prescription for robitussin AC I did not write either of these prescriptions * Telephone Encounter - Brissa Bettencourt RN - 06/19/2015 2:22 PM EDT PLEASE ADVISE RE: THESE 2 SCRIPTS * Telephone Encounter - Susan Newby - 06/19/2015 2:12 PM EDT JADEN FROM [facility] AND WANTED TO KNOW IF IT WAS OK TO GIVE THE PT THE RX FOR guaiFENesin-codeine (ROBITUSSIN AC) 100-10 mg/5 mL liquid BECAUSE PT IS ALSOT ON traMADol (ULTRAM) 50 MG tablet, HE WANTS CALL BACK ON [phone] documented in this encounter Plan of Treatment Not on file documented as of this encounter Visit Diagnoses Not on filedocumented in this encounter Care Teams Sterile Processing Tech Relationship Specialty Start Date End Date Shalonda Hernandez MD 234 Dilshad Taran [address] [place] [address] PCP - General 12/05/14 07/03/22 Pcp, No PCP - General General Medicine 07/04/22 Steven Henderson MD 1131 [facility] [address] [place] [id number] Consulting Provider Rheumatology 02/14/15 documented as of this encounter
--- OUTSIDE RECORDS SUMMARY | 2024-05-10 10:23 | XMS_ITS | Encounter Summary ---
Author Organization [facility] Address [address] [place], [place] [id number] Care Team Providers Care Hand Stapler Name Role Phone Shalonda Hernandez MD Primary Care Provider Steven Henderson MD Unavailable [phone] Pcp, No Primary Care Provider Unavailabl e Encounter Details Date Type Department Care Team ([facility] Contact Info) Description 10/30/2018 Scanned Document [facility] NEUROSURGERY SCAN Neurosurgery, Scan Social [...] on filedocumented in this encounter Care Teams Hand Stapler Relationship Specialty Start Date End Date Shalonda Hernandez MD [address] [place] [address] [address] [place] [address] PCP - General 12/05/14 07/03/22 Pcp, No PCP - General General Medicine 07/04/22 Steven Henderson MD [address] [place] [address] [address] [place] [address] Consulting Provider Rheumatology 02/14/15 documented as of this encounter
--- OUTSIDE RECORDS SUMMARY | 2024-05-10 10:23 | XMS_ITS | Encounter Summary ---
Author Organization [facility] Address [address] [place] [address] Care Team Providers Care Health Care Facility Administrator Name Role Phone Shalonda Hernandez MD Primary Care Provider Steven Henderson MD Unavailable [phone] Pcp, No Primary Care Provider Unavailabl e Encounter Details Date Type Department Care Team ([facility] Contact Info) Description 01/23/2016 Scanned Document [facility] Neurology [address] [place] [address] Umer Jain Jr., MD Retired Provider Social [...] on filedocumented in this encounter Care Teams Health Care Facility Administrator Relationship Specialty Start Date End Date Shalonda Hernandez MD 234 [facility] [address] [place], [place] [address] PCP - General 12/05/14 07/03/22 Pcp, No PCP - General General Medicine 07/04/22 [place] [address] [place] [address] 1 [address] [place] [id number] (work) Consulting Provider Rheumatology 02/14/15 documented as of this encounter
--- OUTSIDE RECORDS SUMMARY | 2024-05-10 10:23 | XMS_ITS | Encounter Summary ---
Author Organization [facility] Address [address] [place], [place] [address] Care Team Providers Care Head Of History Name Role Phone Shalonda Hernandez MD Primary Care Provider [phone] Steven Henderson MD Unavailable [phone] Pcp, No Primary Care Provider Unavailabl e Encounter Details Date Type Department Care Team (Late st Contact Info) Description 03/31/2017 Scanned Document [address] [address] Shalonda Hernandez MD [address] [place] [phone] Social History Tobacco Use Types Packs/Day Years [...] on filedocumented in this encounter Care Teams Head Of History Relationship Specialty Start Date End Date Shalonda Hernandez MD 234 Dilshad Hernandez [address] [address] PCP - General 12/05/14 07/03/22 Pcp, No PCP - General General Medicine 07/04/22 Steven Henderson MD 1131 [facility] [address] [place] [address] Consulting Provider Rheumatology 02/14/15 documented as of this encounter
--- OUTSIDE RECORDS SUMMARY | 2024-05-10 10:24 | XMS_ITS | Encounter Summary ---
Author Organization [facility] Address [address] [place], [place] [address] Care Team Providers Care Drain Layer Name Role Phone Shalonda Hernandez MD Primary Care Provider [phone] Steven Henderson MD Unavailable [phone] Pcp, No Primary Care Provider Unavailabl e Reason for Visit * Reason Comments Medication Refill Encounter Details Date Type Department Care Team (Late st Contact Info) Description 09/04/[address] [address] Shalonda Hernandez MD [address] [phone] Herpes Social History Tobacco Use Types Packs/Day [...] complication documented in this encounter Care Teams Drain Layer Relationship Specialty Start Date End Date Shalonda Hernandez MD [address] [phone] PCP - General 12/05/14 07/03/22 Pcp, No PCP - General General Medicine 07/04/22 Steven Henderson MD 1131 [facility] [address] [place] [address] Consulting Provider Rheumatology 02/14/15 documented as of this encounter
--- OUTSIDE RECORDS SUMMARY | 2024-05-10 10:24 | XMS_ITS | Encounter Summary ---
Author Organization [facility] Address [address] [place], [place] [address] Care Team Providers Care Private Duty Aide Name Role Phone Shalonda Hernandez MD Primary Care Provider [phone] Steven Henderson MD Unavailable [phone] Pcp, No Primary Care Provider Unavailabl e Encounter Details Date Type Department Care Team (Late st Contact Info) Description 10/26/2015 Scanned Document [address] [address] Shalonda Hernandez MD 234 [place] [phone] Social History Tobacco Use Types Packs/Day Years [...] on filedocumented in this encounter Care Teams Private Duty Aide Relationship Specialty Start Date End Date Shalonda Hernandez MD 234 Dilshad Hernandez [address] [address] PCP - General 12/05/14 07/03/22 Pcp, No PCP - General General Medicine 07/04/22 Steven Henderson MD 1131 [facility] [address] [place] [address] Consulting Provider Rheumatology 02/14/15 documented as of this encounter
[2024-05-10 13:43] LABS: Influenza A PCR NEGATIVE (Negative); Influenza B PCR NEGATIVE (Negative); Resp Syncy Virus RNA Qual PCR NEGATIVE (Negative); SARS COV2 PCR INHOUSE NEGATIVE (Negative)
== END 2024-05-10 09:27 | disposition home or self-care (01) ==
LOC: HO.LAB 09:26
PROVIDERS: PCP Nurse Practitioner Family; Visit Provider Nurse Practitioner Family
DX: O99.512 Diseases of the respiratory system complicating pregnancy, second trimester (principal); J06.9 Acute upper respiratory infection, unspecified; O09.522 Supervision of elderly multigravida, second trimester; Z3A.00 Weeks of gestation of pregnancy not specified
CPT/HCPCS: 0241U

== ENCOUNTER 2024-05-10 09:26 | Outpatient (AMB) | payer OTHER, SELFPAY ==
--- OUTSIDE RECORDS SUMMARY | 2024-05-10 09:28 | XMS_ITS | Data Portability ---
Author Organization [place] [facility], Main Office Address [address] [place] [address] Care Team Providers Care Outside Sales Advertising Executive Name Role Phone JOSH VELIZ Primary Care Provider Assessment No assessment recorded. Plan of Treatment Reminders Order Date Submit Date Provider Last Modified By Organization Details Last Modified Time Details Appointments None recorded. Lab None recorded. Referral None recorded. Procedures epidural steroid injection, lumbar (PROC) - please perform a L5-S1 epidural steroid injection 2017 018 [facility], [address], [address], [place], [address], 8 09:25:11 Surgeries None recorded. Imaging None recorded. Medication Orders dexamethas one 2 mg tablet 2017 018 [id number], [address] [place], [address], 8 09:14:28 Patient TargetsNo targets recorded. Patient Instructions Encounter Date Encounter Id Patient Instructions Last Modified By Organization Details Last Modified Time 11/26/2017 [id number] Susan is here for neurosurgical evaluation of her lower back and right leg pain. She does not report any falls, trauma, instigating events. she reports that her pain worsens when she is walking, sitting, standing, driving, bending, lifting, coughing and sneezing. She does find some improvement if she is walking short distances. She has numbness, tingling, weakness and burning pain going down the posterior aspect of the right leg. She states her pain is a 9/10 at its worst. She has undergone home care physical therapist with minimal improvement. She has undergone 6 weeks of physical therapy with no improvement. She has not had any steroid injections. She has not had any oral steroids. She has not had any previous spine surgeries. She denies any bowel or bladder incontinence. On examination she is able to go from a seated to a standing position. She ambulates with a slight right limp. She is unable to walk on her toes and heels. She is leaning forward throughout the exam. She is unable to sit down due to worsening pain. She has a positive straight leg raise on the right. She has weakness in the gastrocnemius on the right. She has numbness and dysesthetic pain in the right S1 nerve root distribution. She has an absent right Achilles reflex. Upper extremity strength, sensation, reflexes are normal. She has a large right disc herniation at the L5-S1 level compressing on S1 nerve root. I did discuss with her that this likely will require surgery but we will try conservative measures of oral steroids and even a steroid injection. If these fail then a lumbar discectomy would be advised. [email or web address] [id number] Not available 12/01/2017 13:00:15 Reason for Referral None Reported. Problems Name Problem SNOMED Code Status Onset Date Resolution Date Notes Provider Name and Address Organization Details Recorded Time Lumbar radiculopath y 652858313 Active 2017 Jonathan Baker PA-C [address] [address], [place], [address], [facility] 8 09:13:14 Degeneration of lumbar intervertebr al disc 98634552 Active 2017 CARLOS Zelaya [facility] [address], [place], [address], [facility] 8 17:16:59 Low back pain 378780978 Active 2017 CARLOS Zelaya [address], [place], [address], [facility] 8 17:17:00 Problem Notes None recorded. Medical Equipment None Reported. Allergies Allergen ID Allergen Name Allergen Category Reaction Reaction Severity Criticality Documentation Date Start Date Code Code System Note Provider Name and Address Organization Details Recorded Time 3979 shellfish derived food,medi cation Not available Not available Not available 11/26/2017 26096 UNK [facility] 08:47:04 Medications Name Sig Start Date Stop Date Status Note LastModified by Organization Details LastModified Time na 11/26 completed Not Available Not Available Not Available nabumetone 750 mg tablet 11/26 completed Not Available Not Available Not Available valacyclovir 1 gram tablet 11/26 completed Not Available Not Available Not Available dexamethasone 2 mg tablet Take 1 tablet every 6 hours by oral route. active Not Available Not Available No t Available gabapentin 100 mg capsule active Not Available Not Available Not Available Vitals Date Recorded Body weight Body mass index (BMI) Body height Body temperature Provider Name and Address Organization Details Last Updated DateTime 11/26/2017 63688.24 g 28 kg/m2 165.1 cm 98.2 [degF] Pamela David [facility] 11/26/2017 08:45:21 Social History Question Answer Notes LastModified by Organizat ion Details LastModified Time Tobacco Smoking Status Never Smoker [facility] 11/26/2017 08:50:44 What Is Your Level Of Alcohol Consumption? Heavy [email or web address] Information not available 11/26/2017 What Is Your Level Of Caffeine Consumption? 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 11/26/2017 Information n ot available 10/14/2018 Sex: Unknown Functional Status None recorded. Mental Status None recorded. Family History Relationship Description Onset Age of this Age Resolved Age Notes LastModified by Organization Details LastModified Time Mother Hypothyroidi sm [email or web address] Not available 11/26 08:49:24 Mother Asthma [email or web address] Not available 11/26/2017 08:49:36 Mother Arthritis [email or web address] Not availa ble 11/26/2017 08:49:47 Medical History Condition Response Coronary Artery Disease N Other Y Anxiety/Depression Y Parkinson's Disease N MRSA N Head Trauma/Injury Y Brain Tumors N PTSD N Anemia N Multiple Sclerosis N Meningitis N Spine/Back Problems N Heart Attack (PA) N Neurological Problems N Anxiety Disorder N Diabetes N Bleeding Disorder N Arthritis N Tuberculosis N Cerebral Palsy N AIDS/HIV N Cancer N Back Problems N Stroke N Asthma N Neck Injury N Epilepsy/Seizures N Thyroid Disorder N Hepatitis N Aneurysm N Liver Disease N Neuropathy N Heart Disease N Headaches N Hypertension N Kidney Disease N Gynecological HistoryNo gynecological history recorded. Obstetrics History GPAL:G 0 P 0 0 0 0 Past Encounters Encounter ID Performer Location Encounter Start Date Encounter Closed Date Diagnosis/Indication Diagnosis SNOMED-CT Code Diagnosis ICD10 Code Diagnosis Note [id number] Keith Pinto MD Main Office [address] [facility] [address] [place] [address] 11/26/2017 08:09:13 11/26/2017 09:22:09 Lumbar radiculopathy 697518331 M54.16 Degenerati on of lumbar intervertebral disc 59324323 M51.36 Low back pain 193097012 M54.5 Health Concerns Section Related Observation LastModified by Organization Detai ls LastModified Time None Recorded Concern Status LastModified by Organization Details LastModified Time None Recorded Advance Directives Directive None Recorded Payers Encounter Date Sequence Insurance Name Policy Number Policy Oliveira Covered Member ID Oliveira Member ID Guarantor Name 11/26/[address] [facility] [id number] [facility] [id number] 2 [facility] Notes Date Note Type Note Provider Name and Address Organization Details Recorded Time 11/26/2017 text/html L-spineReported bypatient.Locati on:right; lower back, shooting nerve pain down right posterior leg, pins/needles with numbness in right foot. Patient feels she may have a right foot drop. Quality:stabbing ; throbbing; sharp; worsening Severity:severe Duration:3 months Timing:morning; daytime; nighttime Context:sports injury Alleviating Factors:PT/OT (currently attending, helps with muscle tightness but not with the nerve pain); 10 days of Gabapentin 300mg TID trial, gave some relief Aggravating Factors:sitting (driving); standing; walking; lifting; bending/squattin g; coughing, sneezing Associated Symptoms:no fever;weakness;n umbness;tingling ;radiation down leg Previous Surgery:none Prior Imaging:MRI (lumbar spine JXR) Previous Injections:none Previous PT:helped a little Work Related:no Working:regular duty Keith Pinto MD [address] [place] [address] [address], [place], [address], [place] [facility] 12/01/2017 13:00:32 OBGyn Episode No OBEpisode recorded.
--- OUTSIDE RECORDS SUMMARY | 2024-05-10 09:28 | XMS_ITS | Encounter Summary ---
Author Organization [facility] Address [address] [place], [place] [address] Care Team Providers Care Reception Manager Name Role Phone Shalonda Hernandez MD Primary Care Provider [phone] Steven Henderson MD Unavailable [phone] Pcp, No Primary Care Provider Unavailabl e Encounter Details Date Type Department Care Team (Late st Contact Info) Description 12/02/2017 Scanned Document [address] [address] Shalonda Hernandez MD [address] [place] [phone] Social History Tobacco Use Types Packs/Day Years Used Date Smoking Tobacco: Never Smokeless Tobacco: Never Alcohol Use Standard Drinks/Week Comments Yes 0 (1 standard drink = 0.6 oz pur e alcohol) Sex and Gender Information Value Date Recorded Sex Assigned at Not on file Gender Identity Not on file Sexual Orientation Not on file documented as of this encounter Plan of Treatment Not on file documented as of this encounter Visit Diagnoses Not on filedocumented in this encounter Care Teams Reception Manager Relationship Specialty Start Date End Date Shalonda Hernandez MD [address] [address] PCP - General 12/05/14 07/03/22 Pcp, No PCP - General General Medicine 07/04/22 Steven Henderson MD [address] [facility] [address] [place] [address] Consulting Provider Rheumatology 02/14/15 documented as of this encounter
--- OUTSIDE RECORDS SUMMARY | 2024-05-10 09:28 | XMS_ITS | Encounter Summary ---
Author Organization [facility] Address [address] [place] [address] Care Team Providers Care Website Developer Name Role Phone Shalonda Hernandez MD Primary Care Provider [phone] Steven Henderson MD Unavailable [phone] Pcp, No Primary Care Provider Unavailabl e Encounter Details Date Type Department Care Team (Late st Contact Info) Description 06/19/[address] [phone] Shalonda Hernandez MD [address] [place] [address] Social History Tobacco Use Types Packs/Day Years Used Date Smoking Tobacco: Never Smokeless Tobacco: Never Alcohol Use Standard Drinks/Week Comments Not Asked 0 (1 standard drink = 0.6 oz pur e alcohol) Sex and Gender Information Value Date Recorded Sex Assigned at Not on file Gender Identity Not on file Sexual Orientation Not on file documented as of this encounter Miscellaneous Notes * Telephone Encounter - Brissa Bettencourt RN - 06/21/2015 8:10 AM EDT TRIED CALLING THE NUMBER GIVEN TO US BY TOOLROOM MACHINIST STAFF; BUT IT WAS THE WRONG NUMBER. TRIED CALL[facility] [place] [facility] HAD AREA CODE 413 & THAT WAS THE CORRECT NUMBER. INFORMED RP. * Telephone Encounter - Brissa Bettencourt RN - 06/19/2015 5:44 PM EDT ATTEMPTED TO CALL [facility] BACK BUT THEY CLOSED @ 4:30 PM. * Telephone Encounter - Shalonda Hernandez - 06/19/2015 5:18 PM EDT Per the [facility] website - last fill for tramadol was August 2014 Ok to fill prescription for robitussin AC I did not write either of these prescriptions * Telephone Encounter - Brissa Bettencourt RN - 06/19/2015 2:22 PM EDT PLEASE ADVISE RE: THESE 2 SCRIPTS * Telephone Encounter - Susan Newby - 06/19/2015 2:12 PM EDT J[facility] FROM [facility] AND WANTED TO KNOW IF IT WAS OK TO GIVE THE PT THE RX FOR guaiFENesin-codeine (ROBITUSSIN AC) 100-10 mg/5 mL liquid BECAUSE PT IS ALSOT ON traMADol (ULTRAM) 50 MG tablet, HE WANTS CALL BACK ON [phone] documented in this encounter Plan of Treatment Not on file documented as of this encounter Visit Diagnoses Not on filedocumented in this encounter Care Teams Website Developer Relationship Specialty Start Date End Date Shalonda Hernandez MD [address] [place] [address] PCP - General 12/05/14 07/03/22 Pcp, No PCP - General General Medicine 07/04/22 Steven Henderson MD [address] [facility] [address] [place] [id number] Consulting Provider Rheumatology 02/14/15 documented as of this encounter
--- OUTSIDE RECORDS SUMMARY | 2024-05-10 09:28 | XMS_ITS | Encounter Summary ---
Author Organization [facility] Address [address] [place], [place] [address] Care Team Providers Care Cant Hooker Name Role Phone Shalonda Hernandez MD Primary Care Provider [phone] Steven Henderson MD Unavailable [phone] Pcp, No Primary Care Provider Unavailabl e Reason for Visit * Reason Comments Medication Refill Encounter Details Date Type Department Care Team (Late st Contact Info) Description 09/04/[address] [address] Shalonda Hernandez MD [address] [phone] Herpes Social History Tobacco Use Types Packs/Day Years [...] documented as of this encounter Visit Diagnoses Diagnosis Herpes Herpes simplex without mention of complication documented in this encounter Care Teams Cant Hooker Relationship Specialty Start Date End Date Shalonda Hernandez MD [address] [phone] PCP - General 12/05/14 07/03/22 Pcp, No PCP - General General Medicine 07/04/22 Steven Henderson MD [address] [facility] [address] [place] [address] Consulting Provider Rheumatology 02/14/15 documented as of this encounter
--- OUTSIDE RECORDS SUMMARY | 2024-05-10 09:28 | XMS_ITS | Encounter Summary ---
Author Organization [facility] Address [address] [place], [place] [address] Care Team Providers Care Assistant Manager/Embalmer Name Role Phone Shalonda Hernandez MD Primary Care Provider [phone] Steven Henderson MD Unavailable [phone] Pcp, No Primary Care Provider Unavailabl e Encounter Details Date Type Department Care Team (Late st Contact Info) Description 10/26/2015 Scanned Document [address] [address] Shalonda Hernandez MD [address] [place] [phone] Social History Tobacco Use Types Packs/Day Years [...] on filedocumented in this encounter Care Teams Assistant Manager/Embalmer Relationship Specialty Start Date End Date Shalonda Hernandez MD [address] [address] PCP - General 12/05/14 07/03/22 Pcp, No PCP - General General Medicine 07/04/22 Steven Henderson MD [address] [facility] [address] [place] [address] Consulting Provider Rheumatology 02/14/15 documented as of this encounter
--- OUTSIDE RECORDS SUMMARY | 2024-05-10 09:28 | XMS_ITS | Clinical Summary ---
Author Organization [facility] Address [address] [place] [address] Care Team Providers Care Personnel Adviser Name Role Phone Steven Henderson MD Unavailable [phone] Pcp, No Primary Care Provider Unavailabl e Allergies Active Allergy Reactions Criticality Noted Date Comments Latex Rash/Dermatitis Medium 01/23/2015 Nickel Rash/Dermatitis Medium 01/23/2015 Medications Medication Sig Dispensed Refills Start Date End Date Status multivitamin Tab tablet Take 1 tablet by mouth daily. Active cholecalciferol (VITAMIN D3) 1000 units tablet Take 1,000 Units by mouth daily. Active Ascorbic Acid (VITAMIN C ER PO) Take by mouth. Act aurea valACYclovir (VALTREX) 1000 MG tabletIndications:He rpes Take 1 tablet (1,000 mg total) by mouth daily. 30 tablet 3 09/05/2017 Active nabumetone (RELAFEN) 750 MG tabletIndications:Ch ronic right-sided low back pain with right-sided sciatica Take 1 tablet (750 mg total) by mouth 2 (two) times a day. 60 tablet 10/13/2017 Active gabapentin (NEURONTIN) 100 MG capsuleIndications:L umbar radiculopathy 1-3 caps po tid , may cause drowsiness 90 capsule 10/31/2017 Active Active Problems Problem Noted Date Diagnosed Date Fibromyalgia 12/23/2013 Herpes simplex 12/23/2013 Insomnia 12/23/2013 Migraine 12/23/2013 Resolved Problems Problem Noted Date Diagnosed Date Resolved Date Cough 06/16/2015 03/07/2016 Immunizations Name Administration Dates Next Due Hepatitis A 12/28/2013 Influenza (AFLURIA/FLUZONE) Inactivated/Split Quadrivalent with Preservative IM 01/06/2017 Influenza Live Attenuated Intranasal 01/04/2016 Tdap 04/24/2012 Family History Medical History Relation Name Comments Substance Abuse Father Arthritis Mother Asthma Mother Colon polyps Mother Hypothyroidism Mother Thyroid disease Mother Relation Name Status Comments Father Mother Social History Tobacco Use Types Packs/Day Years Used Date Smoking Tobacco: Never Smokeless Tobacco: Never Alcohol Use Standard Drinks/Week Comments Yes 0 (1 standard drink = 0.6 oz pur e alcohol) Sex and Gender Information Value Date Recorded Sex Assigned at Not on file Gender Identity Not on file Sexual Orientation Not on file Last Filed Vital Signs Vital Sign Reading Time Taken Comments Blood Pressure 141/89 10/13/2017 11:53 AM EDT Pulse 89 10/13/2017 11:53 AM EDT Temperature 36.9 ??C (98.5 ??F) 10/13/2017 11:53 AM E DT Respiratory Rate 16 10/13/2017 11:53 AM EDT Oxygen Saturation - - Inhaled Oxygen Concentration - - Weight 83.5 kg (184 lb) 10/13/2017 11:53 AM EDT Height 167.6 cm (5' 6 ) 10/13/2017 11:53 AM EDT Body Mass Index 29.7 10/13/2017 11:53 AM EDT Plan of Treatment Health Maintenance Due Date Last Done Comments Hepatitis C Virus Screening 1988 HIV Screening 2001 Hepatitis B Vaccines (1 of 3 - 19+ 3-dose series) 09/17/2007 Pap Smear (Ages 21-65) 03/11/2020 7, 02/14/2015, 04/24/2012 DTaP/Tdap/Td Vaccines (2 - T d or Tdap) 04/24/2022 04/24/2012 Influenza Vaccine 10/23/2023 01/06/2017, 01/04/2016 COVID-19 Vaccine (1 - 2023-2 5 season) 2023 HPV Vaccines Aged Out No longer eligi ble based on patient's age to complete this topic Pneumococcal Vaccine: Pediatric (0-5 Years) and At-Risk Patients (6 to 49 Years) Aged Out No longer eligible b ased on patient's age to complete this topic Procedures Procedure Name Priority Date/Time Associated Diagnosis Comments THINPREP PAP TEST (AUTOMATION ENGINEERING MANAGER) WITH HPV SCREEN Routine 03/11/2017 4:19 PM EST Screening for cervical cancer from Last 3 Months or Most Recently Relevant to Health Maintenance Results * ThinPrep Pap Test (Can Tender) with HPV Screen (03/11/2017 4:19 PM EST) Clinical Information None given [facility] LMP: 02/18/2017 [facility] Previous PAP: NONE GIVEN [facility] Previous Biopsy NONE GIVEN [facility] Source: Cervix [facility] Statement of Adequacy: [facility] Comment: Satisfactory for evaluation. Endocervical/transformation zone component absent. Interpretation/Res ult: [facility] Comment:Negative for intraep ithelial lesion or malignancy. Comment: [facility] Comment: This Pap test has been evaluated with computer assisted technology. Musical Therapist: [facility] Comment: BK,CT(ASCP) CT screening location: [address] Hpv Mrna [id number] Not Detected Not Detected [facility] Comment: This test was performed using the APTIMA HPV Assay ([employer] ? This assay detects E6/E7 viral messenger RNA (mRNA) from 14 high-risk HPV types (16,18,31,33,35,39,45,51,52,56,58,59,66,68). 03/11/2017 4:19 PM EST 03/12/2017 7:24 AM EST Narrative Resulting Agency Comment Performing Organization Information: ?Site ID: [id number] ?Name: [facility] ?Address: [address] [place] [address], [place] [address] ?Director: Joaquín Phillip MD Shalonda Hernandez MD PATHOLOGY/CYTOLOGY O RDJOEY [facility] [address] [place] [address] from Last 3 Months or Most Recently Relevant to Health Maintenance Care Teams Personnel Adviser Relationship Specialty Start Date End Date Pcp, No PCP - General General Medicine 07/04/22 Steven Henderson MD [address] [facility] [address] [place] [address] Consulting Provider Rheumatology 02/14/15
--- OUTSIDE RECORDS SUMMARY | 2024-05-10 09:28 | XMS_ITS | Encounter Summary ---
Author Organization [facility] Address [address] [place] [address] Care Team Providers Care Scaffold Erector Name Role Phone Shalonda Hernandez MD Primary Care Provider Steven Henderson MD Unavailable Pcp, No Primary Care Provider Unavailabl e Encounter Details Date Type Department Care Team ([facility] Contact Info) Description 01/23/2016 Scanned Document [facility] [address] [place] [address] Umer Jain Jr., MD Retired Provider Social History Tobacco Use Types Packs/Day Years [...] on filedocumented in this encounter Care Teams Scaffold Erector Relationship Specialty Start Date End Date Shalonda Hernandez MD 234 [facility] [address] [place], [place] [address] PCP - General 12/05/14 07/03/22 Pcp, No PCP - General General Medicine 07/04/22 [place] [address] [place] [address] [address] [place] [id number] (work) Consulting Provider Rheumatology 02/14/15 documented as of this encounter
--- OUTSIDE RECORDS SUMMARY | 2024-05-10 09:28 | XMS_ITS | Encounter Summary ---
Author Organization [facility] Address [address] [place], [place] [id number] Care Team Providers Care Senior Game Designer Name Role Phone Shalonda Hernandez MD Primary Care Provider [phone] Steven Henderson MD Unavailable Pcp, No Primary Care Provider Unavailabl e Encounter Details Date Type Department Care Team ([facility] Contact Info) Description 10/30/2018 Scanned Document [facility] NEUROSURGERY SCAN Neurosurgery, Scan Social History Tobacco Use Types Packs/Day Years [...] on filedocumented in this encounter Care Teams Senior Game Designer Relationship Specialty Start Date End Date Shalonda Hernandez MD [address] [place] [address] [address] [place] [address] PCP - General 12/05/14 07/03/22 Pcp, No PCP - General General Medicine 07/04/22 Steven Henderson MD [address] [place] [address] 1 [address] [place] [address] Consulting Provider Rheumatology 02/14/15 documented as of this encounter
--- OUTSIDE RECORDS SUMMARY | 2024-05-10 09:28 | XMS_ITS | Encounter Summary ---
Author Organization [facility] Address [address] [place] [address] Care Team Providers Care Marine Erector Name Role Phone Shalonda Hernandez MD Primary Care Provider Steven Henderson MD Unavailable Pcp, No Primary Care Provider Unavailabl e Encounter Details Date Type Department Care Team ([facility] Contact Info) Description 02/14/2015 Scanned Document [address] [address] Provider, Generic Social History Tobacco Use Types Packs/Day Years Used Date Smoking Tobacco: Never Alcohol Use Standard Drinks/Week Comments [...] on filedocumented in this encounter Care Teams Marine Erector Relationship Specialty Start Date End Date Shalonda Hernandez MD 234 [facility] [address] [place] [address] PCP - General 12/05/14 07/03/22 Pcp, No PCP - General General Medicine 07/04/22 [place] [address] [place] [address] [address] [place], [place] [address] Consulting Provider Rheumatology 02/14/15 documented as of this encounter
--- OUTSIDE RECORDS SUMMARY | 2024-05-10 09:28 | XMS_ITS | Encounter Summary ---
Author Organization [facility] Address [address] [place], [place] [id number] Care Team Providers Care Director Of Partner Marketing Name Role Phone Shalonda Hernandez MD Primary Care Provider Steven Henderson MD Unavailable Pcp, No Primary Care Provider Unavailabl e Encounter Details Date Type Department Care Team ([facility] Contact Info) Description 04/03/2019 Scanned Document [facility] NEUROSURGERY SCAN Neurosurgery, Scan Social History Tobacco [...] on filedocumented in this encounter Care Teams Director Of Partner Marketing Relationship Specialty Start Date End Date Shalonda Hernandez MD [address] [place] [address] [address] [place] [address] PCP - General 12/05/14 07/03/22 Pcp, No PCP - General General Medicine 07/04/22 Steven Henderson MD [address] [place] [address] 1 [address] [place] [address] Consulting Provider Rheumatology 02/14/15 documented as of this encounter
--- OUTSIDE RECORDS SUMMARY | 2024-05-10 09:28 | XMS_ITS | Encounter Summary ---
Author Organization [facility] Address [address] [place], [place] [address] Care Team Providers Care Roll Form Operator Name Role Phone Shalonda Hernandez MD Primary Care Provider [phone] Steven Henderson MD Unavailable [phone] Pcp, No Primary Care Provider Unavailabl e Encounter Details Date Type Department Care Team (Late st Contact Info) Description 03/31/2017 Scanned Document [address] [address] Shalonda Hernandez MD [address] [phone] Social History Tobacco Use Types Packs/Day Years [...] on filedocumented in this encounter Care Teams Roll Form Operator Relationship Specialty Start Date End Date Shalonda Hernandez MD 234 Dilshad Hernandez [address] [address] PCP - General 12/05/14 07/03/22 Pcp, No PCP - General General Medicine 07/04/22 Steven Henderson MD 1131 [facility] [address] [place] [address] Consulting Provider Rheumatology 02/14/15 documented as of this encounter
[2024-05-10 09:31] VITALS: BP 126/70; PULSE 100; TEMP 37; O2SAT 98
--- NOTE | 2024-05-10 09:31 | AM.OFFWIN_ITS ---
Intake Vital Signs 05/10/24 09:31 Weight 188 lb BP 126/70 Blood Pressure Location Lt brachial Position Sitting Pulse 100 Pulse Source Pulse Oximeter Temp 98.6 F Temp Source Oral Pulse Oximetry (%) 98 Oxygen Delivery Method Room Air Intake Visit Reasons: EP Loss of voice, cough Intake Note: Patient here for loss of voice, cough, congestion, SOB and chest pressure that started about 3 weeks ago. pt is 5 months . Patient Tobacco Use Status: Never used Tobacco Allergies iodine Allergy (Intermediate, Verified 05/10/24 09:32) rash Latex Gloves Allergy (Unknown, Uncoded 05/10/24 09:32) rash Shellfish Allergy (Unknown, Uncoded 05/10/24 09:32) tongue swelling; throat felt funny Do you need a note to return to daycare/school/sports/work: No HPI HPI Comments History of Present Illness Details 33 y/o female patient who [facility] with c/o URI symptoms x 3 weeks now. Pt reports cough, loss of voice, body chills and body aches. She is 5 months . She does have sick children at home. [facility] Medical History (Updated 05/10/24 @ 10:21 by Jennifer Davis NP) Acute respiratory disease Tachycardia Right knee pain Entrapment of collateral ligament of finger Injury of right ring finger Left foot pain Acquired supination of right foot Nondisplaced fracture of phalanx of toe of left foot Post depression Encounter to establish care (~03/29/21) Scoliosis Fibromyalgia Herniated cervical disc Surgical History No pertinent past surgical history Family History Mother Hypothyroidism Hyperlipidemia Arthritis Asthma Murmur Father HTN (hypertension) Other Bladder cancer Social History Household Members: Children Housing: House Alcohol intake: never Patient Tobacco Use Status: Never used Tobacco e-Cigarette/Vaping Use: Never Used service: No Current occupational status: employed 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 Current occupational exposures/hazards: No Cognitive needs: No Hearing needs: No Vision needs: Yes Review of Systems Const All systems reviewed & are unremarkable except as noted in HPI and below Physical Exam Vital Signs: Last Vital Signs Temp 98.6 F 05/10/24 09:31 Pulse 100 05/10/24 09:31 BP 126/70 05/10/24 09:31 Pulse Ox 98 05/10/24 09:31 Oxygen Delivery Method Room Air 05/10/24 09:31 Const General: cooperative and no acute distress Orientation/consciousness: patient oriented x3 HEENT Head: Yes normocephalic Ears: external ears normal and TM abnormal with fluid behind the TM bilateral General nose exam: Nasal discharge present Face and sinus: Yes sinuses nontender Mouth: moist mucous membranes Throat: Yes tonsils normal and Yes uvula midline Resp Effort & Inspection: normal respiratory effort, able to speak in complete sentences and no cough Auscultation: clear to auscultation bilaterally, no crackles, no rales, no rhonchi and no wheezes Cardio Heart sounds: S1 normal heart sound present and S2 normal heart sound present Neuro General: patient oriented x3 Assessment & Plan Assessment & Plan (1) Acute respiratory disease: Code(s): J06.9 - Acute upper respiratory infection, unspecified Plan: Ordered SARs Rest and hydrate well with warm fluids Acetaminophne for pain relief. OTC cough and cold remedies. Orders: Orders SARS-CoV2/FLU/RSV Today J06.9 - Acute upper respiratory infection, unspecified Coding Level of Care Code Est Pt Level 4 (51686) Diagnoses Acute respiratory disease J06.9 Time Spent (min) 20
== END 2024-05-10 10:50 | disposition home or self-care (01) ==
PROVIDERS: PCP Nurse Practitioner Family; Visit Provider Nurse Practitioner Family
DX: J06.9 Acute upper respiratory infection, unspecified (principal)

== ENCOUNTER 2024-09-06 12:07 | Outpatient (AMB) | payer OTHER, SELFPAY ==
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
[2024-09-06 12:16] VITALS: BP 134/74; PULSE 77; RESP 13; TEMP 36.4; O2SAT 97; BMI 32.8
--- OUTSIDE RECORDS SUMMARY | 2024-09-06 13:32 | XMS_ITS | Encounter Summary ---
Author Organization [facility] Address [address] [place] [address] Care Team Providers Care Arc Furnace Operator Name Role Phone Shalonda Hernandez MD Primary Care Provider [phone] Steven Henderson MD Unavailable [phone] Pcp, No Primary Care Provider Unavailabl e Encounter Details Date Type Department Care Team (Late st Contact Info) Description 06/19/[address] [phone] Shalonda eHrnandez MD [address] [place] [id number] Social History Tobacco Use Types Packs/Day Years Used Date Smoking Tobacco: Never Smokeless Tobacco: Never Alcohol Use Standard Drinks/Week Comments Not Asked 0 (1 standard drink = 0.6 oz pur e alcohol) Comments No Sex and Gender Information Value Date Recorded Sex Assigned at Not on file Legal Sex Female 6:04 PM EDT Gender Identity Not on file Sexual Orientation Not on file documented as of this encounter Miscellaneous Notes * Telephone Encounter - Brissa Bettencourt RN - 06/21/2015 8:10 AM EDT TRIED CALLING THE NUMBER GIVEN TO US BY SENIOR MEDICAL TECHNOLOGIST STAFF; BUT IT WAS THE WRONG NUMBER. TRIED CALLING [facility] IN [place] THAT HAD AREA CODE [id number] & THAT WAS THE CORRECT NUMBER. INFORMED RP. * Telephone Encounter - Brissa Bettencourt RN - 06/19/2015 5:44 PM EDT ATTEMPTED TO CALL [facility] BACK BUT THEY CLOSED @ 4:30 PM. * Telephone Encounter - Shalonda Hernandez - 06/19/2015 5:18 PM EDT Per the [facility] website - last fill for tramadol was August 2014 Ok to fill prescription for robitussin AC I did not write either of these prescriptions * Telephone Encounter - Brissa Bettencourt RN - 06/19/2015 2:22 PM EDT PLEASE ADVISE RE: THESE 2 SCRIPTS * Telephone Encounter - Susan Newby - 06/19/2015 2:12 PM EDT [facility] FROM [facility] AND WANTED TO KNOW IF IT WAS OK TO GIVE THE PT THE RX FOR guaiFENesin-codeine (ROBITUSSIN AC) 100-10 mg/5 mL liquid BECAUSE PT IS ALSOT ON traMADol (ULTRAM) 50 MG tablet, HE WANTS CALL BACK ON [phone] documented in this encounter Plan of Treatment Not on file documented as of this encounter Visit Diagnoses Not on filedocumented in this encounter Care Teams Arc Furnace Operator Relationship Specialty Start Date End Date Shalonda Hernandez MD [address] [facility] [address] [place] [address] PCP - General 12/05/14 07/03/22 Pcp, No PCP - General General Medicine 07/04/22 [place] [address] [place] [address] [address] [place] [address] Consulting Provider Rheumatology 02/14/15 documented as of this encounter
== END 2024-09-06 12:58 | disposition home or self-care (01) ==
LOC: HO.HMCFM 12:08
PROVIDERS: PCP Nurse Practitioner Family; Visit Provider Nurse Practitioner Family
DX: Z00.01 Encounter for general adult medical examination with abnormal findings (principal); M50.20 Other cervical disc displacement, unspecified cervical region; M54.41 Lumbago with sciatica, right side; M54.42 Lumbago with sciatica, left side; G89.29 Other chronic pain; M51.27 Other intervertebral disc displacement, lumbosacral region; R76.8 Other specified abnormal immunological findings in serum; J06.9 Acute upper respiratory infection, unspecified; M79.7 Fibromyalgia; M51.26 Other intervertebral disc displacement, lumbar region; F33.0 Major depressive disorder, recurrent, mild; E55.9 Vitamin D deficiency, unspecified

== ENCOUNTER → 2024-09-06 12:07 | Outpatient (BNVA) | payer OTHER, SELFPAY | PROVIDERS: PCP Nurse Practitioner Family; Visit Provider Nurse Practitioner Family | DX: Z00.01 Encounter for general adult medical examination with abnormal findings (principal); O99.340 Other mental disorders complicating pregnancy, unspecified trimester; O26.899 Other specified pregnancy related conditions, unspecified trimester; O99.519 Diseases of the respiratory system complicating pregnancy, unspecified trimester; M79.7 Fibromyalgia; E55.9 Vitamin D deficiency, unspecified; M50.20 Other cervical disc displacement, unspecified cervical region; M54.41 Lumbago with sciatica, right side; M54.42 Lumbago with sciatica, left side; G89.29 Other chronic pain; R76.8 Other specified abnormal immunological findings in serum; J06.9 Acute upper respiratory infection, unspecified; M51.26 Other intervertebral disc displacement, lumbar region; F33.0 Major depressive disorder, recurrent, mild; R79.89 Other specified abnormal findings of blood chemistry | CPT/HCPCS: 96127 ==

== ENCOUNTER 2025-01-05 12:49 | Outpatient (AMB) | payer OTHER, SELFPAY ==
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
[2025-01-05 12:56] VITALS: BP 118/70; PULSE 83; RESP 12; TEMP 36.3; O2SAT 98; BMI 31.2
--- OUTSIDE RECORDS SUMMARY | 2025-01-05 16:11 | XMS_ITS | Clinical Summary ---
Author Organization [facility] Address [address] [place] [address] Care Team Providers Care Reconstructive Dentist Name Role Phone Steven Henderson MD Unavailable [phone] Pcp, No Primary Care Provider Unavailabl e Allergies Active Allergy Reactions Criticality Noted Date Comments Latex Rash/Dermatitis Medium 01/23/2015 Nickel Rash/Dermatitis Medium 01/23/2015 Medications multivitamin Tab tablet Take 1 tablet by mouth daily. Active cholecalciferol (VITAMIN D3) 1000 units tablet Take 1,000 Units by mouth daily. Active Ascorbic Acid (VITAMIN C ER PO) Take by mouth. Active valACYclovir (VALTREX) 1000 MG tabletIndications :Herpes Take 1 tablet (1,000 mg total) by mouth daily. 30 tablet 3 8 Active nabumetone (RELAFEN) 750 MG tabletIndications :Chronic right-sided low back pain with right-sided sciatica Take 1 tablet (750 mg total) by mouth 2 (two) times a day. 60 tablet 8 Active gabapentin (NEURONTIN) 100 MG capsuleIndication s:Lumbar radiculopathy 1-3 caps po tid , may cause drowsiness 90 capsule 8 Active Active Problems Problem Noted Date Diagnosed Date Fibromyalgia 12/23/2013 Herpes simplex 12/23/2013 Insomnia 12/23/2013 Migraine 12/23/2013 Resolved Problems Problem Noted Date Diagnosed Date Resolved Date Cough 06/16/2015 03/07/2016 Immunizations Immunization Administration Dates Next Due Hepatitis A 12/28/2013 [...] 89 10/13/2017 11:53 AM EDT Temperature 36.9 C (98.5 F) 10/13/2017 11:53 AM EDT Respiratory Rate 16 10/13/2017 11:53 AM EDT [...] d or Tdap) 04/24/2022 04/24/2012 Influenza Vaccine 10/22/2024 01/06/2017, 01/04/2016 COVID-19 Vaccine ( - 2023-2 5 season) 2024 HPV Vaccines (No Doses Required) Completed Pneumococcal Vaccine: Pediatric (0-5 Years) and At-Risk Patients (6 to 49 Years) Aged Out No longer eligible b ased on patient's age to complete this topic Procedures Procedure Name Priority Date/Time Associated Diagnosis Comments THINPREP PAP TEST (BOX LOADER) WITH HPV SCREEN Routine 03/11/2017 4:19 PM EST Screening for cervical cancer from Last 3 Months or Most Recently Relevant to Health Maintenance Results * ThinPrep Pap Test (Bunk House Worker) with HPV Screen (03/11/2017 4:19 PM EST) Clinical Information None given [facility] LMP: 02/18/2017 [facility] Previous PAP: NONE GIVEN [facility] Previous Biopsy NONE GIVEN [facility] Source: Cervix [facility] Statement of Adequacy: [facility] Comment: Satisfactory for evaluation. Endocervical/transformation zone component absent. Interpretation/Res ult: [facility] Comment:Negative for intraep ithelial lesion or malignancy. Comment: [facility] Comment: This Pap test has been evaluated with computer assisted technology. Cylinder Handler: [facility] Comment: BKCT(ASCP) CT screening location: [address] Hpv Mrna [id number] Not Detected Not Detected [facility] Comment: This test was performed using the APTIMA HPV Assay ([employer] This assay detects E6/E7 viral messenger RNA (mRNA) from 14 high-risk HPV types (16,18,31,33,35,39,45,51,52,56,58,59,66,68). 03/11/2017 4:19 PM EST 03/12/2017 7:24 AM EST Narrative Resulting Agency Comment Performing Organization Information: Site ID: [id number] Name: [facility] Address: [address] [place] [address], [place] [address] Director: Joaquín Phillip MD us Shalonda Hernandez MD LAB AMB PATH/CYTO ORDERABLES F inal Result [facility] [employer] [facility] [address] [place] [address], [place] [address] from Last 3 Months or Most Recently Relevant to Health Maintenance Insurance [facility] HMO Care Teams Reconstructive Dentist Relationship Specialty Start Date End Date Pcp, No PCP - General General Medicine 07/04/22 Steven Henderson MD [address] [facility] [address] [place] [address] Consulting Provider Rheumatology 02/14/15
--- OUTSIDE RECORDS SUMMARY | 2025-01-05 16:11 | XMS_ITS | Encounter Summary ---
Author Organization [facility] Address [address] [place] [address] Care Team Providers Care Verifier Name Role Phone Shalonda Hernandez MD Primary Care Provider [phone] Steven Henderson MD Unavailable [phone] Pcp, No Primary Care Provider Unavailabl e Encounter Details Date Type Department Care Team (Late st Contact Info) Description 06/19/[address] [phone] Shalonda Hernandez MD [address] [place] [address] Social History Tobacco Use Types Packs/Day [...] CALLING THE NUMBER GIVEN TO US BY SOC ANALYST STAFF; BUT IT WAS THE WRONG NUMBER. TRIED CALLING [facility] IN [place] THAT HAD AREA CODE [id number] & THAT WAS THE CORRECT NUMBER. INFORMED RP. * Telephone Encounter - Brissa Bettencourt RN - 06/19/2015 5:44 PM EDT ATTEMPTED TO CALL JADEN BACK BUT THEY CLOSED @ 4:30 PM. * Telephone Encounter - Shalonda Hernandez - 06/19/2015 5:18 PM EDT Per the [facility] website - last fill for tramadol was August 2014 Ok to fill prescription for robitussin AC I did not write either of these prescriptions * Telephone Encounter - Brissa Bettencourt RN - 06/19/2015 2:22 PM EDT PLEASE ADVISE RE: THESE 2 SCRIPTS * Telephone Encounter - Susan Newby - 06/19/2015 2:12 PM EDT JADEN FROM [facility] AND WANTED TO KNOW IF IT WAS OK TO GIVE THE PT THE RX FOR guaiFENesin-codeine (ROBITUSSIN AC) 100-10 mg/5 mL liquid BECAUSE PT IS ALSOT ON traMADol (ULTRAM) 50 MG tablet, HE WANTS CALL BACK ON [phone] documented in this encounter Plan of Treatment Not on file documented as of this encounter Visit Diagnoses Not on filedocumented in this encounter Care Teams Verifier Relationship Specialty Start Date End Date Shalonda Hernandez MD [address] [facility] [address] [place] [address] PCP - General 12/05/14 07/03/22 Pcp, No PCP - General General Medicine 07/04/22 [place] [address] [place] [address] [address] [place] [address] Consulting Provider Rheumatology 02/14/15 documented as of this encounter
--- OUTSIDE RECORDS SUMMARY | 2025-01-05 16:11 | XMS_ITS | Encounter Summary ---
Author Organization [facility] Address [address] [place] [address] Care Team Providers Care Direct Selling Counselor Name Role Phone Shalonda Hernandez MD Primary Care Provider Steven Henderson MD Unavailable Pcp, No Primary Care Provider Unavailabl e Encounter Details Date Type Department Care Team ([facility] Contact Info) Description 10/30/2018 Scanned Document [facility] NEUROSURGERY SCAN Neurosurgery, Scan Social History Tobacco [...] on filedocumented in this encounter Care Teams Direct Selling Counselor Relationship Specialty Start Date End Date Shalonda Hernandez MD [address] [place] [address] [address] [place] [address] PCP - General 12/05/14 07/03/22 Pcp, No PCP - General General Medicine 07/04/22 [place] [address] [place] [address] 1 [address] [place] [address] Consulting Provider Rheumatology 02/14/15 documented as of this encounter
--- OUTSIDE RECORDS SUMMARY | 2025-01-05 16:11 | XMS_ITS | Encounter Summary ---
Author Organization [facility] Address [address] [place] [address] Care Team Providers Care Toy Mechanic Name Role Phone Shalonda Hernandez MD Primary Care Provider [phone] Steven Henderson MD Unavailable Pcp, No Primary Care Provider Unavailabl e Encounter Details Date Type Department Care Team (Late st Contact Info) Description 12/02/2017 Scanned Document [address] [phone] Shalonda Hernandez MD [address] [phone] Social History Tobacco Use Types Packs/Day Years [...] on filedocumented in this encounter Care Teams Toy Mechanic Relationship Specialty Start Date End Date Shalonda Hernandez MD [address] [address] PCP - General 12/05/14 07/03/22 Pcp, No PCP - General General Medicine 07/04/22 Steven Henderson MD [address] [facility] [address] [place] [address] Consulting Provider Rheumatology 02/14/15 documented as of this encounter
--- OUTSIDE RECORDS SUMMARY | 2025-01-05 16:11 | XMS_ITS | Encounter Summary ---
Author Organization [facility] Address [address] [place] [address] Care Team Providers Care Sustainable Communities Designer Name Role Phone Shalonda Hernandez MD Primary Care Provider [phone] Steven Henderson MD Unavailable Pcp, No Primary Care Provider Unavailabl e Encounter Details Date Type Department Care Team (Late st Contact Info) Description 03/31/2017 Scanned Document [address] [phone] Shalonda Hernandez MD [address] [phone] Social History Tobacco Use Types Packs/Day Years [...] on filedocumented in this encounter Care Teams Sustainable Communities Designer Relationship Specialty Start Date End Date Shalonda Hernandez MD [address] [address] PCP - General 12/05/14 07/03/22 Pcp, No PCP - General General Medicine 07/04/22 Steven Henderson MD [address] [facility] [address] [place] [address] Consulting Provider Rheumatology 02/14/15 documented as of this encounter
--- OUTSIDE RECORDS SUMMARY | 2025-01-05 16:12 | XMS_ITS | Encounter Summary ---
Author Organization [facility] Address [address] [place] [address] Care Team Providers Care Racing Driver Name Role Phone Shalonda Hernandez MD Primary Care Provider Steven Henderson MD Unavailable Pcp, No Primary Care Provider Unavailabl e Encounter Details Date Type Department Care Team ([facility] Contact Info) Description 04/03/2019 Scanned Document [facility] NEUROSURGERY SCAN Neurosurgery, Scan Social History [...] on filedocumented in this encounter Care Teams Racing Driver Relationship Specialty Start Date End Date Shalonda Hernandez MD [address] [place] [address] [address] [place] [address] PCP - General 12/05/14 07/03/22 Pcp, No PCP - General General Medicine 07/04/22 [place] [address] [place] [address] [address] [place] [address] Consulting Provider Rheumatology 02/14/15 documented as of this encounter
--- OUTSIDE RECORDS SUMMARY | 2025-01-05 16:12 | XMS_ITS | Encounter Summary ---
Author Organization [facility] Address [address] [place] [address] Care Team Providers Care Marketing Analyst Name Role Phone Shalonda Hernandez MD Primary Care Provider Steven Henderson MD Unavailable Pcp, No Primary Care Provider Unavailabl e Encounter Details Date Type Department Care Team (Late st Contact Info) Description 10/26/2015 Scanned Document [address] [phone] Shalonda Hernandez MD [address] [phone] Social History Tobacco Use Types Packs/Day Years [...] on filedocumented in this encounter Care Teams Marketing Analyst Relationship Specialty Start Date End Date Shalonda Hernandez MD [address] [address] PCP - General 12/05/14 07/03/22 Pcp, No PCP - General General Medicine 07/04/22 Steven Henderson MD [address] [facility] [address] [place] [address] Consulting Provider Rheumatology 02/14/15 documented as of this encounter
--- OUTSIDE RECORDS SUMMARY | 2025-01-05 16:12 | XMS_ITS | Encounter Summary ---
Author Organization [facility] Address [address] [place] [address] Care Team Providers Care Enzyme Chemist Name Role Phone Shalonda Hernandez MD Primary Care Provider [phone] Steven Henderson MD Unavailable [phone] Pcp, No Primary Care Provider Unavailabl e Reason for Visit * Reason Comments Medication Refill Encounter Details Date Type Department Care Team (Late st Contact Info) Description 09/04/2017 Refill [facility] [address] [phone] Shalonda Hernandez MD [address] [phone] Herpes Social History Tobacco Use Types Packs/Day [...] complication documented in this encounter Care Teams Enzyme Chemist Relationship Specialty Start Date End Date Shalonda Hernandez MD [address] [phone] PCP - General 12/05/14 07/03/22 Pcp, No PCP - General General Medicine 07/04/22 Steven Henderson MD [facility] [address] [place] [address] Consulting Provider Rheumatology 02/14/15 documented as of this encounter
--- OUTSIDE RECORDS SUMMARY | 2025-01-05 16:12 | XMS_ITS | Encounter Summary ---
Author Organization [facility] Address [address] [place] [address] Care Team Providers Care Credit Analysis Manager Name Role Phone Shalonda Hernandez MD Primary Care Provider Steven Henderson MD Unavailable [phone] Pcp, No Primary Care Provider Unavailabl e Encounter Details Date Type Department Care Team ([facility] Contact Info) Description 01/23/2016 Scanned Document [facility] Neu[facility] [address] [place] [address] Umer Jain Jr., MD Retired Provider Social [...] on filedocumented in this encounter Care Teams Credit Analysis Manager Relationship Specialty Start Date End Date Shalonda Hernandez MD [address] [address] PCP - General 12/05/14 07/03/22 Pcp, No PCP - General General Medicine 07/04/22 Steven Henderson MD [address] [place] [address] [address] [place] [address] Consulting Provider Rheumatology 02/14/15 documented as of this encounter
--- OUTSIDE RECORDS SUMMARY | 2025-01-05 16:12 | XMS_ITS | Encounter Summary ---
Author Organization [facility] Address [address] [place] [address] Care Team Providers Care Community Health Nursing Director Name Role Phone Shalonda Hernandez MD Primary Care Provider [phone] Steven Henderson MD Unavailable [phone] Pcp, No Primary Care Provider Unavailabl e Encounter Details Date Type Department Care Team ([facility] Contact Info) Description 02/14/2015 Scanned Document [address] [phone] Provider, Generic Social History Tobacco Use Types [...] on filedocumented in this encounter Care Teams Community Health Nursing Director Relationship Specialty Start Date End Date Shalonda Hernandez MD [address] [place] [address] [place] [phone] PCP - General 12/05/14 07/03/22 Pcp, No PCP - General General Medicine 07/04/22 Steven Henderson MD [address] [place] [address] [address] [place] [address] Consulting Provider Rheumatology 02/14/15 documented as of this encounter
== END 2025-01-05 17:05 | disposition home or self-care (01) ==
LOC: HO.HMCFM 12:50
PROVIDERS: PCP Nurse Practitioner Family; Visit Provider Nurse Practitioner Family
DX: M50.20 Other cervical disc displacement, unspecified cervical region (principal); M51.26 Other intervertebral disc displacement, lumbar region; M51.27 Other intervertebral disc displacement, lumbosacral region; R20.2 Paresthesia of skin

== ENCOUNTER 2025-01-28 14:29 | Outpatient (AMB) | payer OTHER, SELFPAY ==
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
--- OUTSIDE RECORDS SUMMARY | 2025-01-28 16:06 | XMS_ITS | Clinical Summary ---
Author Organization [facility] Address [address] [place] [address] Care Team Providers Care Jersey Knitter Name Role Phone Steven Henderson MD Unavailable [phone] Pcp, No Primary Care Provider Unavailabl e [...] Date/Time Associated Diagnosis Comments THINPREP PAP TEST (POSTING SPECIALIST) WITH HPV SCREEN Routine 03/11/2017 4:19 PM EST Screening for cervical cancer from Last 3 Months or Most Recently Relevant to Health Maintenance Results * ThinPrep Pap Test (Document Specialist) with HPV Screen (03/11/2017 4:19 PM EST) Clinical Information None given [facility] LMP: 02/18/2017 [facility] Previous PAP: NONE GIVEN [facility] Previous Biopsy NONE GIVEN [facility] Source: Cervix [facility] Statement of Adequacy: [facility] Comment: Satisfactory for evaluation. Endocervical/transformation zone component absent. Interpretation/Res ult: [facility] Comment:Negative for intraep ithelial lesion or malignancy. Comment: [facility] Comment: This Pap test has been evaluated with computer assisted technology. Ventilation Equipment Tender: [facility] Comment: BKCT(ASCP) CT screening location: [address] Hpv Mrna [id number] Not Detected Not Detected [facility] Comment: This test was performed using the APTIMA HPV Assay ([employer] This assay detects E6/E7 viral messenger RNA (mRNA) from 14 high-risk HPV types (16,18,31,33,35,39,45,51,52,56,58,59,66,68). 03/11/2017 4:19 PM EST 03/12/2017 7:24 AM EST Narrative Resulting Agency Comment Performing Organization Information: Site ID: [id number] Name: [employer] Address: [address] [place] [address], [place] [address] Director: Joaquín Phillip MD us Shalonda Hernandez MD LAB AMB PATH/CYTO ORDERABLES F inal Result [facility] [address] [place] [address], [place] [address] from Last 3 Months or Most Recently Relevant to Health Maintenance Insurance [facility] HMO Care Teams Jersey Knitter Relationship Specialty Start Date End Date Pcp, No PCP - General General Medicine 07/04/22 Steven Henderson MD [address] [facility] [address] [place] [address] Consulting Provider Rheumatology 02/14/15
--- OUTSIDE RECORDS SUMMARY | 2025-01-28 16:06 | XMS_ITS | Encounter Summary ---
Author Organization [facility] Address [address] [place] [address] Care Team Providers Care National Dedicated Truck Driver Name Role Phone Shalonda Hernandez MD Primary Care Provider [phone] Steven Henderson MD Unavailable Pcp, No Primary Care Provider Unavailabl e Encounter Details Date Type Department Care Team (Late st Contact Info) Description 10/26/2015 Scanned Document [address] [phone] Shalonda Hernandez MD [address] [id number] Social History Tobacco Use Types Packs/Day Years [...] on filedocumented in this encounter Care Teams National Dedicated Truck Driver Relationship Specialty Start Date End Date Shalonda Hernandez MD [address] [address] PCP - General 12/05/14 07/03/22 Pcp, No PCP - General General Medicine 07/04/22 Steven Henderson MD [address] [facility] [address] [place] [address] Consulting Provider Rheumatology 02/14/15 documented as of this encounter
--- OUTSIDE RECORDS SUMMARY | 2025-01-28 16:06 | XMS_ITS | Encounter Summary ---
Author Organization [facility] Address [address] [place] [address] Care Team Providers Care Pulverizer Tender Name Role Phone Shalonda Hernandez MD Primary Care Provider [phone] Steven Henderson MD Unavailable Pcp, No Primary Care Provider Unavailabl e Encounter Details Date Type Department Care Team ([facility] Contact Info) Description 02/14/2015 Scanned Document [address] [phone] Provider, Generic Social History Tobacco Use Types [...] on filedocumented in this encounter Care Teams Pulverizer Tender Relationship Specialty Start Date End Date Shalonda Hernandez MD [address] [place] [address] [place] [phone] PCP - General 12/05/14 07/03/22 Pcp, No PCP - General General Medicine 07/04/22 Steven Henderson MD [address] [place] [address] [address] [place] [address] Consulting Provider Rheumatology 02/14/15 documented as of this encounter
--- OUTSIDE RECORDS SUMMARY | 2025-01-28 16:06 | XMS_ITS | Encounter Summary ---
Author Organization [facility] Address [address] [place] [address] Care Team Providers Care Public Transit Bus Driver Name Role Phone Shalonda Hernandez MD Primary Care Provider Steven Henderson MD Unavailable [phone] Pcp, No Primary Care Provider Unavailabl e Encounter Details Date Type Department Care Team ([facility] Contact Info) Description 10/30/2018 Scanned Document [facility] NEUROSURGERY SCAN Neurosurgery, Scan Social History Tobacco [...] on filedocumented in this encounter Care Teams Public Transit Bus Driver Relationship Specialty Start Date End Date Shalonda Hernandez MD [address] [place] [address] [place] [address] PCP - General 12/05/14 07/03/22 Pcp, No PCP - General General Medicine 07/04/22 [place] [address] [place] [address] [address] [place] [address] Consulting Provider Rheumatology 02/14/15 documented as of this encounter
--- OUTSIDE RECORDS SUMMARY | 2025-01-28 16:06 | XMS_ITS | Encounter Summary ---
Author Organization [facility] Address [address] [place] [address] Care Team Providers Care Steam Clean Machine Operator Name Role Phone Shalonda Hernandez MD Primary Care Provider Steven Henderson MD Unavailable Pcp, No Primary Care Provider Unavailabl e Encounter Details Date Type Department Care Team ([facility] Contact Info) Description 04/03/2019 Scanned Document [facility] NEUROSURGERY SCAN Neurosurgery, Scan Social History [...] on filedocumented in this encounter Care Teams Steam Clean Machine Operator Relationship Specialty Start Date End Date Shalonda Hernandez MD [address] [place] [address] [place] [address] PCP - General 12/05/14 07/03/22 Pcp, No PCP - General General Medicine 07/04/22 [place] [address] [place] [address] [address] [place] [address] Consulting Provider Rheumatology 02/14/15 documented as of this encounter
--- OUTSIDE RECORDS SUMMARY | 2025-01-28 16:06 | XMS_ITS | Encounter Summary ---
Author Organization [facility] Address [address] [place] [address] Care Team Providers Care Carbide Die Maker Name Role Phone Shalonda Hernandez MD Primary Care Provider Steven Henderson MD Unavailable [phone] Pcp, No Primary Care Provider Unavailabl e Encounter Details Date Type Department Care Team (Late st Contact Info) Description 12/02/2017 Scanned Document [address] [phone] Shalonda Hernandez MD [address] [phone] Social History Tobacco Use Types Packs/Day Years [...] on filedocumented in this encounter Care Teams Carbide Die Maker Relationship Specialty Start Date End Date Shalonda Hernandez MD [address] [address] PCP - General 12/05/14 07/03/22 Pcp, No PCP - General General Medicine 07/04/22 Steven Henderson MD [address] [facility] [address] [place] [address] Consulting Provider Rheumatology 02/14/15 documented as of this encounter
--- OUTSIDE RECORDS SUMMARY | 2025-01-28 16:06 | XMS_ITS | Encounter Summary ---
Author Organization [facility] Address [address] [place] [address] Care Team Providers Care Optics Test Technician Name Role Phone Shalonda Hernandez MD Primary Care Provider [phone] Steven Henderson MD Unavailable Pcp, No Primary Care Provider Unavailabl e Encounter Details Date Type Department Care Team (Late st Contact Info) Description 03/31/2017 Scanned Document [address] [phone] Shalonda Hernandez MD [address] [phone] Social History Tobacco Use Types Packs/Day Years [...] on filedocumented in this encounter Care Teams Optics Test Technician Relationship Specialty Start Date End Date Shalonda Hernandez MD [address] [address] PCP - General 12/05/14 07/03/22 Pcp, No PCP - General General Medicine 07/04/22 Steven Henderson MD [address] [facility] [address] [place] [address] Consulting Provider Rheumatology 02/14/15 documented as of this encounter
--- OUTSIDE RECORDS SUMMARY | 2025-01-28 16:06 | XMS_ITS | Encounter Summary ---
Author Organization [facility] Address [address] [place] [address] Care Team Providers Care Rubber Goods Supervisor Name Role Phone Shalonda Hernandez MD Primary Care Provider Steven Henderson MD Unavailable Pcp, No Primary Care Provider Unavailabl e Encounter Details Date Type Department Care Team ([facility] Contact Info) Description 01/23/2016 Scanned Document [facility] Neurology [address] [place] [address] Umer Jain Jr., MD Retired Provider Social [...] on filedocumented in this encounter Care Teams Rubber Goods Supervisor Relationship Specialty Start Date End Date Shalonda Hernandez MD [address] [address] PCP - General 12/05/14 07/03/22 Pcp, No PCP - General General Medicine 07/04/22 Steven Henderson MD [address] [place] [address] [address] [place] [id number] Consulting Provider Rheumatology 02/14/15 documented as of this encounter
== END 2025-01-28 15:27 | disposition home or self-care (01) ==
LOC: HO.HMCFM 14:29
PROVIDERS: PCP Nurse Practitioner Family; Visit Provider Nurse Practitioner Family
DX: M51.26 Other intervertebral disc displacement, lumbar region (principal); M51.27 Other intervertebral disc displacement, lumbosacral region; R20.2 Paresthesia of skin; M50.20 Other cervical disc displacement, unspecified cervical region; M54.41 Lumbago with sciatica, right side; M54.42 Lumbago with sciatica, left side; G89.29 Other chronic pain

== ENCOUNTER 2025-01-31 10:33 | Outpatient (AMB) | payer OTHER, SELFPAY ==
--- OUTSIDE RECORDS SUMMARY | 2025-01-28 23:59 | XMS_ITS | Continuity of Care Document ---
Author Organization [facility] Address [address] [place] [address]- Care Team Providers Care Cabin Man Name Role Phone Angelo EDWARD, Lis Alexandre Primary Care Physician Encounter [facility] ACCT R [id number] Date(s): 12/29/24 - 01/28/[address] [address] Attending Physician: Ruthann Perry Admitting Physician: Ruthann Perry Referring Physician: Ruthann Perry Encounter Type: Triage Allergies, Adverse Reactions, Alerts Substance Criticality Severity Reaction Reaction Severity Status shellfish Active Adhesive Bandage Act aurea iodine Active Medications acetaminophen 325 mg oral tablet 650 mg, By Mouth, Every 4 hours, PRN, (1-3), may give 325mg per patient preference and re-dose [id number] within 4 hours, if needed. Patient should only receive a total of 650mg of Acetaminophen every 4 hours., Refills 0, Maintenance, Pain , Mild, 08/30/18 6:54:20 AM EDT Start Date: 08/30/18 Status: Ordered Medication Dispense Status: Completed Total Allowed Fills: 1 Fills Dispensed: 0 docusate sodium 100 mg oral capsule 100 mg, 1, capsule, By Mouth, 2 times a day, Refills 0, Maintenance, 08/30/18 6:54:21 AM EDT Start Date: 08/30/18 Status: Ordered Medication Dispense Status: Completed Total Allowed Fills: 1 Fills Dispensed: 0 ibuprofen 800 mg oral tablet 800 mg, By Mouth, Every 8 hours, PRN, (4-6), may give 400mg per patient preference and re-dose [id number] within 8 hours if needed. Patient should only receive a total of 800mg of Ibuprofen every 8 hours., Refills 0, Maintenance, Pain , Moderate, 08/30/18 6:54:22 AM EDT Start Date: 08/30/18 Status: Ordered Medication Dispense Status: Completed Total Allowed Fills: 1 Fills Dispensed: 0 ondansetron 8 mg oral tablet, disintegrating 1 tablet = 8 mg, By Mouth, Every 8 hours, PRN Nausea & Vomiting, # 10 tablet, 0 Refills, Maintenance, 06/24/20 1:19:00 PM EDT, Tablet, [id number], Partial fill upon patient requestif the prescription is for a schedule II opioid drug., 168, cm, 08/30/18 8:47:00 EDT, Height, 95, kg, 08/28/18 16:03:00 EDT, Dry Weight Start Date: 06/24/20 Status: Ordered Medication Dispense Status: Completed Quantity: 10.0 Unit: tablet Total Allowed Fills: 1 Fills Dispensed: 0 Multivitamins By Mouth, Daily, 0 Refills, Maintenance, 08/28/18 1:38:32 PM EDT Start Date: 08/28/18 Status: Ordered Medication Dispense Status: Completed Total Allowed Fills: 1 Fills Dispensed: 0 Valtrex 500 mg oral tablet 500 mg, 1, tablet, By Mouth, Every 12 hours, Refills 0, Maintenance, 08/28/18 1:38:25 PM EDT Start Date: 08/28/18 Status: Ordered Medication Dispense Status: Completed Total Allowed Fills: 1 Fills Dispensed: 0 Problem List Condition Confirmation Course Effective Dates Status H ealth Status Informant HSV infection Confirmed Active Gestational hypertension Confirmed Active Obese class I Confirmed Active care following vaginal delivery Confirmed Active Herniated lumbar intervertebral disc Confirmed Active Rh negative status during Confirmed Active Abnormal thyroid blood test Confirmed Active Social History Social History Type Response Smoking Status Never (less than 100 in lifetime) entered on: 08/28/18 Sex Sex Representation Female (finding) Patient Care team information Care Team Personnel Name: Lis Stephens NP Position: [facility] Outreach Member Role: PCP Address: [address] [place] [address]- Telecom: Name: Cyndi Oneal RN Position: [facility] RN Member Role: Primary Care Nurse Care Team Related Persons Name: REGGIE NOE Name: VICENTE NOE Name: ARPITA NOE Name: ADALBERTO NOE Name: CHIKIS NOE Name: LEI WALKER Name: MARTIN CARROLL Insurance Providers Guarantor name: MILLIE NOE Health Plan Information #: 1 Payer: [employer] [facility] PPO Payer Identifier: NA Member Number: [id number] Group Number: [id number] Subscriber Identifier: NA Relationship to Subscriber: self Coverage Type: Other Private Insurance Coverage Verification Date: Telecom: NA Address:
--- OUTSIDE RECORDS SUMMARY | 2025-01-29 17:37 | XMS_ITS | Continuity of Care Document ---
Author Organization [facility] ter Address [address] [place] [id number]- Care Team Providers Care Safe Technician Name Role Phone Angelo EDWARD, Lis Alexandre Primary Care Physician [phone] [place] [facility] [place]): [place]/29/25 - 01/29/[address] [address] Discharge Disposition: A-D/C Home Attending Physician: Manuelito Foster MD Admitting Physician: Manuelito Foster MD Referring Physician: Manuelito Foster MD Encounter Type: One Time OP Allergies, Adverse Reactions, Alerts Substance Criticality Severity Reaction Reaction Severity Status shellfish Active Adhesive Bandage Act aurea iodine Active Medications acetaminophen 325 mg oral tablet 650 mg, By Mouth, Every 4 hours, PRN, (1-3), may give 325mg per patient preference and re-dose [id number] within 4 hours, if needed. Patient should [...] give 400mg per patient preference and re-dose [id number] within 8 hours if needed. Patient should [...] Refills, Maintenance, 06/24/20 1:19:00 PM EDT, Tablet, [id number], Partial fill upon patient requestif the prescription [...] Total Allowed Fills: 1 Fills Dispensed: 0 Mental Status Mental Status Assessment Assessment Assessment Component Result Effecti ve Date Patient Health Questionnaire 2 item (PHQ-2) total score [Reported] 0 01/29/25 Problem List Condition Confirmation Course Effective Dates Status H ealth Status Informant HSV infection Confirmed Active Gestational hypertension Confirmed Active Obese class I Confirmed Active care following vaginal delivery Confirmed Active Herniated lumbar intervertebral disc Confirmed Active Rh negative status during Confirmed Active Abnormal thyroid blood test Confirmed Active Procedures Procedure Date Related Diagnosis Body Site Status Dilation of cervix uteri and curettage for termination of 08/23/23 Com pleted Results Radiology Reports * Exam Date Time Procedure Performing Provider Status 01/29/25 5:02 PM US Uterus Transvaginal Auth (Verified) Notes: (US Uterus Transvaginal) Reason For Exam: 7.3 wk by dates, UPT pos. Quant pending;Bleeding RESULT: US Uterus Transvaginal US Uterus Transvaginal Reason: 34-year-old female who is with vaginal Bleeding; 7.3 wk by dates, UPT pos.Quant pending; Clinical Question(s): IUP COMPARISON: Pelvic ultrasound January 01, 2018. TECHNIQUE: Transvaginal pelvic ultrasound with grayscale and color Doppler analysis. FINDINGS: Last menstrual period (LMP): 12/08/2024. Gestational age (GA) by LMP: 7 weeks 3 days. UTERUS AND GESTATIONAL STRUCTURES: Normal gestational sac containing a yolk sac is identified within the endometrial cavity. Gestational sac: 3.1 x 2.3 x 3.2 cm (mean sac diameter 2.9 cm). Yolk sac: 0.4 cm. Small area of subchorionic hemorrhage along the catheter aspect of the gestational sac measuring approximately 1.1 cm. Single intrauterine with cardiac activity 135 BPM. [place]-rump length (CRL): 0.9 cm. Ultrasound age of 7w0d. Uterus: 10.6 x 6.1 x 7.2 cm, volume 243.2 cc. No masses. No abnormalities of the cervix. RIGHT OVARY: Size: 2.8 x 2.0 x 1.9 cm, volume 5.5 cc. Morphology: Normal echotexture. No pathologic cysts or mass. Normal color Doppler appearance. LEFT OVARY: Size: 4.6 x 2.6 x 2.6 cm, volume 16.2 cc. Morphology: Normal echotexture. Corpus luteum cyst noted in the LEFT ovary measuring approximately 1.7 cm.. Normal color Doppler appearance. ADNEXA: No free fluid or adnexal lesion. IMPRESSION: Single intrauterine with cardiac activity. Suspect small subchorionic hemorrhage. Estimated gestational age 7 weeks 0 days based on crown-rump length. Estimated gestational age by ultrasound is concordant with estimated age by clinical parameters. An actionable message (Yellow) has been communicated via the [employer] system on 01/29/2025 6:38 PM, Message ID [id number]. I have personally reviewed the images and I agree with this report. WSN: [id number] Ordering Physician: Joanne Iraheta Dictated By: Marcos Moses DO Dictated Date/Time: 01/29/25 6:38 pm Reviewed By: Enrique Christianson MD Signed By: Enrique Christianson MD Signed Date/Time: 01/29/25 6:43 pm Transcribed By: TABATHA Transcribed Date/Time: 01/29/25 5:10 pm Vital Signs Most recent to oldest [Reference Range]: 1 2 Height 168 cm (01/29/25 1:09 PM) Oxygen Saturation [94-100 %] 100 % (01/29/25 1:19 PM) 100 % (01/29/25 1:15 PM) Pulse Rate [55-90 bpm] 92 bpm *H* (01/29/25 1:15 PM) Blood Pressure [90-138/55-84 mm Hg] 140/ 82mm Hg *H* (01/29/25 1:15 PM) Respiratory Rate [16-30 br/min] 17 br/mi n (01/29/25 1:15 PM) Temperature [96.8-100.4 DegF] 99.0 DegF (01/29/25 1:15 PM) Mode of Delivery (Oxygen) Room air (01/29/25 1:19 PM) Blood pressure sites Arm, right (01/29/25 1:15 PM) Temperature Route Oral (01/29/25 1:15 PM) Dry Weight 87.2 kg (01/29/25 1:15 PM) Dry Weight Obtained Via Standing scale (01/29/25 1:15 PM) Social History Social History Type Response Smoking Status Never (less than 100 in lifetime) entered on: 08/28/18 Sex Sex Representation Female (finding) Note * Perri Kearney RN: PERFORM Event Display: Discharge/Transfer Note Hospital Authored Date: [id number] Nursing Discharge Note Entered On: 01/29/2025 17:39 EST Performed On: 01/29/2025 17:39 EST by Perri Kearney RN Nursing Discharge Note 2 Discharge Time : 01/29/2025 17:35 EST Discharge Level of Care at Discharge : Home/Senior Care/Foster Care Patient Left Unit Via : Ambulatory Patient Accompanied Off Unit with : Significant other DC Instructions Provided & Signed by Pt : Yes Patient Understands D/C Instructions : Yes Patient Instructions Discharge Signed : Yes Did Pt have Specialty Bed or Wound Vac : No Perri Kearney RN - 01/29/2025 17:39 EST Electronically Signed on 01/29/25 05:39 PM Perri Kearney RN * Perri Kearney RN: PERFORM Event Display: Patient Education/Instruction Authored Date: [id number] Inpatient Adult Discharge Instructions. [address] [address] Name: MILLIE NOE : 1990?? Visit: 01/29/2025 13:08?? Current Date: 01/29/2025 17:33 ?? Account: [id number]?? Inpatient Adult Discharge Instructions We would like to thank you for allowing us to assist you with your healthcare needs. The following includes patient education materials and information regarding your injury/illness. Our entire staffstrives to provide an excellent experience for our patients and their families. PLEASE ENSURE YOU FOLLOW-UP PER THE INSTRUCTIONS BELOW! ?? YOUR OPINION IS IMPORTANT TO US! Please complete the survey you may receive by mail or email. Your feedback will be used to make improvements to the healthcare experiences of our patients and their families. Surveys are administered by [employer] ?? If further treatment with your primary care physician or another doctor is recommended, it is important for you to keep the appointment. Call your primary care physician or return to the Emergency Department immediately if your condition worsens, fails to improve, or new symptoms develop. If you need to find a doctor, you can call [facility] for a referral at [phone] or toll free at [phone]) or log in to [email or web address].. ?? [facility], in keeping with [facility] guidance, no longer requires face masks for staff, patientsor visitors in most situations. Similiar to time spent indoors at other locations, there is the chance that you were exposed to repiratory viruses during your time with us (such as flu or COVID-19). If you develop symptoms concerning for a viral respiratory infection, please seek testing (and treatment if indicated) from your medical provider or home test kit. ?? You can view and manage your care through the patient portal or by using a health care omid of your choosing. [employer] is a website that allows you to securely view your medical information including your hospital discharge summary, office visit summaries, medications and follow-up visits. You can also request appointments, renew medications, and request access to your medical information using a health care omid of your choosing, or just ask a question. You are entitled to know the individuals who participated in your treatment. This information is available within your medical record and will be provided upon your request. You can enroll at [email or web address] or register d uring your next office visit. You have been discharged from [facility], Patient Care Unit: [id number]??. If you have any questions regarding these instructions, including results of studies pending, afteryou leave, please call us and we will be happy to assist you 14/10. [facility] Your Care Team Attending Physician Manuelito Foster MD?? Consulting Providers Manuelito Foster MD?? Your Diagnosis Spotting in Tests Performed Below is a partial list of the tests performed during your hospitalization. You may have had other tests and procedures not included in this list. Please discuss all test results with your provider. CBC HCG Plus Beta (Females and Males) US Uterus Transvaginal?-- Results Pending -- CBC?? HCG Plus Beta (Females and Males)?? US Uterus Transvaginal?? Primary Care Provider Lis Stephens NP? Advance Directive Health Care Proxy on File Yes - Health Care Proxy Discharge Vitals Temperature: 99 DegF Height: 168 cm Pulse Rate:??92 bpm??High ?? Respiratory Rate: 17 br/min ?? Systolic Blood Pressure:??140 mm Hg??High ?? Diastolic Blood Pressure: 82 mm Hg ?? Oxygen Saturation: 100 % ?? Studies Pending All studies ordered during this hospital stay have been completed unless listed below. Please discuss all pending results with your provider listed above in these instructions. ?? US Uterus Transvaginal?? What to do next Instructions From Your Doctor ?? Orders?? Discharge Medications MILLIE NOE :1990 Visit Date:01/29/2025 Medications: Please continue your medications until treatment is completed or stopped by your provider. Medications not listed below should be discontinued. Discuss any questions related to medications with your provider. What How Much When Instructions Next Dose Unchanged Acetaminophen (acetaminophen 325 mg oral tablet) 650 Milligram Oral Every 4 hours as needed for Pain , Mild Special Instructions: (1-3), may give 325mg per patient preference and re-dose with 325mg within 4 hours, if needed. ?? Patient should only receive a total of 650mg of Acetaminophen every 4 hours. Ordering Physician: Valente GUTIÉRREZ [OB]Gay ?? Unchanged Docusate (docusate sodium 100 mg oral capsule) 1 capsule Oral Twice a day Ordering Physician: Valente GUTIÉRREZ [OB]Gay Unchanged Ibuprofen (ibuprofen 800 mg oral tablet) 800 Milligram Oral Every 8 hours as needed for Pain , Moderate Special Instructions: (4-6), may give 400mg per patient preference and re-dose with 400mg within 8 hours if needed. ?? Patient should only receive a total of 800mg of Ibuprofen every 8 hours. Ordering Physician: Valente GUTIÉRREZ [OB]Gay ?? Unchanged Multivitamin, ( Multivitamins) Oral Daily Unchanged Ondansetron (ondansetron 8 mg oral tablet, disintegrating) 1 tab(s) Oral Every 8 hours as needed for Nausea & Vomiting Ordering Physician: Kush Sanchez MD Unchanged ValACYclovir (Valtrex 500 mg oral tablet) 1 tab(s) Oral Every 12 hours Prescription Given During Visit No new medications prescribed at time of discharge.?? Laboratory Results Below is a partial list of the most recent Laboratory test results done prior to this discharge. You may have had other tests and procedures not included in this list. Please discuss all test resultswith your provider. CBC (01/29/2025) ???WBC - 9.1 k/mm3???RBC - 4.68 m/mm3???Hgb - 13.9 Gm/dL???Hct - 41.1 %???MCV - 87.8 femtoliters???MCH - 29.7 pg???MCHC - 33.8 Gm/dL???Platelet Count - 233 k/mm3???RDW-SD - 37.7 femtoliters???MPV - 10.5 femtoliters???Nucleated RBC (Automated) - 0.0 #/100 WBC'S???Abs. NRBC - 0.0 k/mm3 HCG Plus Beta (Females and Males) (01/29/2025) BHCG (HCG & Beta) - 29383 mIU/mL Allergies (NKA means No Known Allergies) Adhesive Bandage iodine shellfish Problems Active Problems??(8) Abnormal thyroid blood test?? Gestational hypertension?? Herniated lumbar intervertebral disc?? HSV infection?? Obese class I?? care following vaginal delivery? Rh negative status during ?? Education Materials Below is the list of Educational Leaflet Providered with your Discharge Instructions. [employer] Patient Education - Bleeding During Early ?? Valuables and Belongings I fully understand and agree that [facility] accepts no responsibility for all my personal property including clothing, toilet articles, radios, jewelry, dentures, hearing aids, rings, money, or any other property that is in my possession or is brought to me after admission. I understand certain valuables may be placed in a hospital safe for a short period of time. I understand that the hospital is not liable for loss or damage due to accident, fire, or other natural occurrence while said property is in the safe. I accept full responsibility for any personal property that I keep with me, and will not hold the hospital responsible in case of loss or disappearance. I acknowledge that i have been encouraged to send valuables and belongings home. ? Other Discharge Information ? Pulmonary Rehab Status?? Pulmonary Rehab Discharge Status?? Respiratory Rate: 17 br/min ? Common Emergency Awareness Tips IS IT A STROKE? Act FAST and Check for these signs: FACE Does the face look uneven? ARM Does one arm drift down? SPEECH Does their speech sound strange? TIME Call at any sign of stroke ?? Heart Attack Signs Chest discomfort: Most heart attacks involve discomfort in the center of the chest and lasts more than a few minutes, or goes away and comes back. It can feel like uncomfortable pressure, squeezing, fullness or pain. Discomfort in upper body: Symptoms can include pain or discomfort in one or both arms, back, neck, jaw or stomach. Shortness of breath: With or without discomfort. Other signs: Breaking out in a cold sweat, nausea, or lightheaded. Remember, MINUTES DO MATTER. If you experience any of these heart attack warning signs, call to get immediate medical attention! ?? Smoking can increase your chances of developing chronic health problems and can cause harmful effects to other family members in your house. If you smoke, you are strongly encouraged to quit. Please call [facility] at [phone] or [phone] ([phone]) or log in to [email or web address] for referrals to smoking cessation programs. ?? 805 Suicide & Crisis Lifeline is available 14/10 if you or someone you know needs to find a reason to keep living. By calling 364 you'll be connected to a skilled, trained counselor at a crisis center in your area. INPATIENT DISCHARGE INSTRUCTIONS SIGNATURE PAGE MILLIE NOE Location:[facility] Registration Date and Time:01/29/2025 13:08 EST Primary Care Physician: Lsi Stephens NP, Attending Physician: Manuelito Foster MD, I MILLIE NOE, have received the above patient education materials/instructions and have verbalized understanding. If ambulance or transport services are being used I further acknowledge being given a choice of service. ?? If you need to contact me, please call me at this number: . Patient/Candy Supervisor Name: Patient/Candy Supervisor Signature: Relationship to Patient: Witness Name/Signature: Date: * Perri Kearney RN: PERFORM Event Display: Patient Education Leaflets Authored Date: [id number] Bleeding During Early ?? 840 Bleeding During Early If you???ve had bleeding early in your , you???re not alone. Many other women have early bleeding, too. And in most cases, nothing is wrong. But your healthcare provider still needsto know about it. They may want to do tests to find out why you???re bleeding. Call your provider if you see bleeding during . Tell your provider if your blood is Rh negative. Then they can figure out if you need anti-D immune globulin treatment. What causes early bleeding? The cause of bleeding early in is often unknown. But many factors early on in may lead to light bleeding (called spotting) or heavier bleeding. These include: ??? Having sex ??? When the embryo implants on the uterine wall ??? Bleeding between the sac membrane and the uterus (subchorionic bleeding) ??? loss (miscarriage) ??? The embryo implants outside of the uterus (ectopic ) If you see spotting Light bleeding is the most common type of bleeding in early . If you see it, call your healthcare provider. Chances are, they will tell you that you can care for yourself at home. If tests are needed Depending on how much you bleed, your healthcare provider may ask you to come in for some tests. A pelvic exam, for instance, can help see how far along your is. You also may have an ultrasound or a Doppler test. These imaging tests use sound waves to check the health of your baby. The ultrasound may be done on your belly or inside your vagina. You may also need a special blood test. This test compares your hormone levels in blood samples taken 2 days apart. The results can help your provider learn more about the implantation of the embryo. Your blood type will also need to be checked to assess if you will need to be treated for Rh sensitization.?? Warning signs If your bleeding doesn???t stop or if you have any of the following, get medical care right away: ??? Soaking a sanitary pad each hour ??? Bleeding like you???re having a period ??? Cramping or severe belly pain ??? Feeling dizzy or faint ??? Tissue passing through your vagina ??? Bleeding at any time after the first trimester Questions you may be asked Bleeding early in isn't normal. But it is common. If you???ve seen any bleeding, you may be concerned. But keep in mind that bleeding alone doesn???t mean something is wrong. Just be sure to call your healthcare provider right away. They may ask you questions like these to help find the cause of your bleeding: ??? When did your bleeding start? Is your bleeding very light or is it like a period? Is the blood bright red or brownish? Have you had sex recently? Have you had pain or cramping? Have you felt dizzy or faint? Monitoring your Bleeding will often stop as quickly as it began. Your may go on a normal path again. You may need to make a few extra visits. But you and your baby will most likely be fine. ?? Patient Care team information Care Team Personnel Name: Lis Stephens NP Position: [facility] Outreach Member Role: PCP Address: [address] [place] [address]- Telecom: Name: Cyndi Oneal RN Position: S RN Member Role: Primary Care Nurse Name: Perri Kearney RN Position: [facility] OB RN Member Role: Chart Review Care Team Related Persons Name: REGGIE NOE Name: VICENTE NOE Name: ARPITA NOE Name: ADALBERTO NOE Name: CHIKIS NOE Name: LEI WALKER Name: MARTIN CARROLL Insurance Providers Guarantor name: MILLIE HASMUKH Health Plan Information #: 1 Payer: [employer] Payer Identifier: NA Member Number: [id number] Group Number: [id number] Subscriber Identifier: [id number] Relationship to Subscriber: self Coverage Type: Other Private Insurance Coverage Verification Date: NA Telecom: NA Address:
--- NOTE | 2025-01-31 10:36 | A.OFFVIS_ITS ---
Vital Signs 3 01/31/25 10:40 Height 5 ft 6 in Weight 188 lb BMI 30.3 BP 134/73 Blood Pressure Location Lt brachial Position Sitting Pulse 85 Pulse Source Pulse Oximeter Pulse Oximetry (%) 100 Oxygen Delivery Method Room Air Intake Visit Reasons: Other cervical disc displacement Intake Note: Pain otday 07/01 Driller Helper Required: No Accompanied by: Self / Same As Patient Allergies iodine Allergy (Intermediate, Verified 01/31/25 10:45) rash latex Allergy (Unknown, Verified 01/31/25 10:45) Rash Shellfish Allergy (Unknown, Uncoded 01/28/25 14:24) tongue swelling; throat felt funny HPI Comments Details: The patient is a 34-year-old female presenting with chronic back pain related to lumbar disc herniation at L5-S1 and right-sided radiculopathy. The back pain began in 2017 following a softball injury while sliding into the medical center base. The pain is described as constant, with a baseline intensity of 3 out of 10, escalating to 8 out of 10 during exacerbations. The patient has undergone various interventions including physical therapy for a total of three years, animal care specialist, and acupuncture with ongoing symptoms. Physical therapy was most recently completed a month ago at [facility], and animal care specialist provides temporary relief, particularly for neck pain and headaches. Acupuncture was attempted twice but did not provide significant relief. She also trited OTC topical patches and tramadol in the past with no relief. The patient has a history of cervical disc herniation, scoliosis, fibromyalgia, depression, PTSD, and anxiety. She has not had any back surgeries and has been managing her conditions with non-surgical interventions. Patient reports she was offered back surgery prior to 2019 without complete back and leg pain guarantee so declined surgery at that time. She reports chronic right foot drop. The patient reports that her pain is exacerbated by prolonged sitting, standing, or walking, and she experiences numbness in her limbs, especially right leg and foot when lying down for extended periods. - Onset: Began in 2017 following a softball injury. - Quality: Constant, pulsing, throbbing, shooting, stabbing, tingling, numbness. - Location: Primarily in the lower back, radiating to the right leg, lateral midfoot and foot. - Radiation: Radiates to the right leg and foot, causing tingling and numbness. - Exacerbating factors: Prolonged sitting, standing, walking, and driving for more than 10 minutes. - Relieving factors: neurocritical care physician provides temporary relief. - Interference: Affects ability to sit, stand, walk, and drive. - Affect: Pain impacts mood and psychological wellbeing, contributing to anxiety and PTSD. - Analgesia: Current pain level is a baseline of 3 out of 10, escalating to 8 out of 10. neurocritical care physician provides temporary relief. - Adverse Effects: No adverse effects from current pain management strategies were discussed. - Activities of Daily Living: Pain interferes with sitting, standing, walking, and driving and caring for her family, has 3 months old baby - Aberrant Drug Related Behaviors: No signs of medication misuse or abuse were discussed. Oswestry Neck Pain Disability Score=23 Oswestry Low Back Pain Disability Score=30 [facility] Medical History (Updated 01/31/25 @ 11:05 by ISHAAN Hendrickson) Acute respiratory disease Tachycardia Right knee pain Entrapment of collateral ligament of finger Injury of right ring finger Left foot pain Acquired supination of right foot Nondisplaced fracture of phalanx of toe of left foot Post depression Encounter to establish care (~03/29/21) Scoliosis Fibromyalgia Herniated cervical disc Surgical History No pertinent past surgical history Family History (Updated 01/28/25 @ 14:26 by Garima Maciel CMA) Mother Hypothyroidism Hyperlipidemia Arthritis Asthma Murmur Father HTN (hypertension) Other Bladder cancer Social History (Updated 01/28/25 @ 14:26 by Garima Maciel CMA) Household Members: Children Housing: House Alcohol intake: never Patient Tobacco Use Status: Never used Tobacco e-Cigarette/Vaping Use: Never Used service: No Current occupational status: employed 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 - Neurological: Reports weakness in the right leg, tingling, and numbness in the right foot. - Psychological: Reports anxiety and PTSD. Was seeing counselor in the past. - General: Denies any recent surgeries or incontinence. All systems reviewed & are unremarkable except as noted in HPI and below Physical Exam Vital Signs: Last Vital Signs Pulse 85 01/31/25 10:40 BP 134/73 01/31/25 10:40 Pulse Ox 100 01/31/25 10:40 Oxygen Delivery Method Room Air 01/31/25 10:40 BMI result Body Mass Index 30.3 General: Appears afebrile. No acute distress. Holding 3 months old baby. Alert and oriented. Mood and affect appropriate. Follows and participates in conversation appropriately. Respiratory effort is unlabored. No cough. Able to transition from sit to stand unassisted. Ambulates with bilaterally normal heel strike and toe off, reports RLE weakness and right foot drop. General: Yes no CVA tenderness Back/Spine/Pelvis Other: Patient is able to walk and stand on heels and tip toes with no difficulties demonstrating good motor tone. No limping. Limited lumbar flexion and extension due to pain. Demonstrates 5/5 left and 4/5 right strength of quadriceps bilaterally as well as 5/5 left and 4/5 right flexion/dorsiflexion of bilateral feet against resistance. Mild right foot drop noted. 2+ pedal pulses bilaterally. Sstraight leg rise with dorsiflexion positive on the right. +1 patellar and diminished chilles reflexes bilaterally. Facet loading test positive bilaterally. Kurt?s, Pelvic compression and Stinchfield tests are negative bilaterally. No groin pain with I/E hip rotations. Valsalva maneuver negative. Back: no CVA tenderness Cervical Spine: cervical ROM normal, cervical muscular tenderness, pain with cervical ROM and No Cervical spine tenderness Thoracic/Lumbar Spine: thoracic and lumbar spine normal to inspection, Lasegue's sign positive on the right and localized, pain with thoraco-lumbar ROM, paraspinal muscle tenderness on the right greater than left, thoraco-lumbar ROM limited, No thoracic spinal tenderness and lumbar spinal tenderness (L4-S1) Pelvis: buttock tenderness on the right Sacroiliac joints: bilaterally tender to palpation Results Reviewed Results Reviewed: 11/05/2017 Assessment & Plan Assessment & Plan (1) Lumbar herniated disc: Code(s): M51.26 - Other intervertebral disc displacement, lumbar region Category: Medical (2) Chronic back pain: Code(s): M54.9 - Dorsalgia, unspecified; G89.29 - Other chronic pain Category: Medical Qualifiers: Back pain laterality: midline Back pain location: low back pain S ciatica laterality: bilateral sciatica Sciatica presence: with sciatica Q ualified Code(s): M54.41 - Lumbago with sciatica, right side; M54.42 - Lumbago with sciatica, left side; G89.29 - Other chronic pain (3) Herniated nucleus pulposus, L5-S1: Code(s): M51.27 - Other intervertebral disc displacement, lumbosacral region Category: Medical (4) Lumbar radiculopathy, right: Code(s): M54.16 - Radiculopathy, lumbar region Category: Medical Plan The plan includes obtaining an MRI to assess for neural integrity and compression, particularly at the L5-S1 level, to assess the extent of the disc herniation and its impact on chronic right-sided radiculopathy. Back pain has been resistant to conservative treatments, including Tylenol, NSAIDs, muscle relaxants, opioid trial, animal care specialist and physical therapy, which have provided mild relief. All questions and concerns have been answered and patient agreed with the treatment plan. Follow up for MRI results and sooner as needed. Patient was informed and verbally consented to the use of an ambient scribe for clinic note documentation during this visit. Orders: Orders 2 MR lumbar spine wo con Today M51.26 - Other intervertebral disc displacement, lumbar region, M54.16 - Radiculopathy, lumbar region Coding Level of Care Code New Pt Level 4 (77673) Diagnoses Lumbar herniated disc M51.26 Chronic midline low back pain with bilateral sciatica M54.41; M54.42; G89.29 Back pain laterality: midline Back pain location: low back pain Sciatica laterality: bilateral sciatica Sciatica presence: with sciatica Herniated nucleus pulposus, L5-S1 M51.27 Lumbar radiculopathy, right M54.16
[2025-01-31 10:40] VITALS: BP 134/73; PULSE 85; O2SAT 100; BMI 30.3
--- OUTSIDE RECORDS SUMMARY | 2025-01-31 12:23 | XMS_ITS | Encounter Summary ---
Author Organization [facility] Address [address] [place] [address] Care Team Providers Care Toy Designer Name Role Phone Shalonda Hernandez MD Primary Care Provider Steven Henderson MD Unavailable [phone] Pcp, No Primary Care Provider Unavailabl e Encounter Details Date Type Department Care Team ([facility] Contact Info) Description 10/30/2018 Scanned Document [facility] NEUROSURGERY SCAN Neurosurgery, Scan Social [...] filedocumented in this encounter Care Teams Toy Designer Relationship Specialty Start Date End Date Shalonda Hernandez MD [address] [place] [address] [address] [place] [address] PCP - General 12/05/14 07/03/22 Pcp, No PCP - General General Medicine 07/04/22 [place] [address] [place] [address] [address] [place] [address] Consulting Provider Rheumatology 02/14/15 documented as of this encounter
--- OUTSIDE RECORDS SUMMARY | 2025-01-31 12:23 | XMS_ITS | Encounter Summary ---
Author Organization [facility] Address [address] [place] [address] Care Team Providers Care Leaf Blender Name Role Phone Shalonda Hernandez MD Primary Care Provider [phone] Steven Henderson MD Unavailable Pcp, No Primary Care Provider Unavailabl e Encounter Details Date Type Department Care Team (Late st Contact Info) Description 03/31/2017 Scanned Document [address] [address] Shalonda Hernandez MD [address] [phone] Social History Tobacco Use Types Packs/Day Years [...] on filedocumented in this encounter Care Teams Leaf Blender Relationship Specialty Start Date End Date Shalonda Hernandez MD [address] [address] PCP - General 12/05/14 07/03/22 Pcp, No PCP - General General Medicine 07/04/22 Steven Henderson MD [address] [facility] [address] [place] [address] Consulting Provider Rheumatology 02/14/15 documented as of this encounter
--- OUTSIDE RECORDS SUMMARY | 2025-01-31 12:23 | XMS_ITS | Clinical Summary ---
Author Organization [facility] Address [address] [place] [address] Care Team Providers Care Hydraulic Oil Tool Operator Name Role Phone Steven Henderson MD Unavailable [phone] Pcp, No Primary Care Provider Unavailabl e [...] Date/Time Associated Diagnosis Comments THINPREP PAP TEST (POLY PACKER AND HEAT SEALER) WITH HPV SCREEN Routine 03/11/2017 4:19 PM EST Screening for cervical cancer from Last 3 Months or Most Recently Relevant to Health Maintenance Results * ThinPrep Pap Test (Manager Winter) with HPV Screen (03/11/2017 4:19 PM EST) Clinical Information None given [facility] LMP: 02/18/2017 [facility] Previous PAP: NONE GIVEN [facility] Previous Biopsy NONE GIVEN [facility] Source: Cervix [facility] Statement of Adequacy: [facility] Comment: Satisfactory for evaluation. Endocervical/transformation zone component absent. Interpretation/Res ult: [facility] Comment:Negative for intraep ithelial lesion or malignancy. Comment: [facility] Comment: This Pap test has been evaluated with computer assisted technology. Bonderizer: [facility] Comment: BKCT(ASCP) CT screening location: [address] Hpv Mrna [id number] Not Detected Not Detected [facility] Comment: This test was performed using the APTIMA HPV Assay ([employer] This assay detects E6/E7 viral messenger RNA (mRNA) from 14 high-risk HPV types (16,18,31,33,35,39,45,51,52,56,58,59,66,68). 03/11/2017 4:19 PM EST 03/12/2017 7:24 AM EST Narrative Resulting Agency Comment Performing Organization Information: Site ID: [id number] Name: [facility] Address: [address] [place] [address], [facility] [place] [address] Director: Joaquín Phillip MD us Shalonda Hernandez MD LAB AMB PATH/CYTO ORDERABLES F inal Result [facility] [address] [place] [address], [place] [address] from Last 3 Months or Most Recently Relevant to Health Maintenance Insurance [facility] HMO Care Teams Hydraulic Oil Tool Operator Relationship Specialty Start Date End Date Pcp, No PCP - General General Medicine 07/04/22 Steven Henderson MD [address] [facility] [address] [place] [address] Consulting Provider Rheumatology 02/14/15
--- OUTSIDE RECORDS SUMMARY | 2025-01-31 12:23 | XMS_ITS | Encounter Summary ---
Author Organization [facility] Address [address] [place] [address] Care Team Providers Care Material Damage Adjuster Name Role Phone Shalonda Hernandez MD Primary Care Provider Steven Henderson MD Unavailable [phone] Pcp, No Primary Care Provider Unavailabl e Encounter Details Date Type Department Care Team (Late st Contact Info) Description 12/02/2017 Scanned Document [address] [address] Shalonda Hernandez MD [address] [phone] Social History Tobacco Use Types Packs/Day Years [...] on filedocumented in this encounter Care Teams Material Damage Adjuster Relationship Specialty Start Date End Date Shalonda Hernandez MD [address] [address] PCP - General 12/05/14 07/03/22 Pcp, No PCP - General General Medicine 07/04/22 Steven Henderson MD [address] [facility] [address] [place] [address] Consulting Provider Rheumatology 02/14/15 documented as of this encounter
--- OUTSIDE RECORDS SUMMARY | 2025-01-31 12:23 | XMS_ITS | Encounter Summary ---
Author Organization [facility] Address [address] [place] [address] Care Team Providers Care Complaint Manager Name Role Phone Shalonda Hernandez MD Primary Care Provider Steven Henderson MD Unavailable [phone] Pcp, No Primary Care Provider Unavailabl e Encounter Details Date Type Department Care Team (Late st Contact Info) Description 10/26/2015 Scanned Document [address] [address] Shalonda Hernandez MD [address] [phone] Social History Tobacco Use Types Packs/Day Years [...] on filedocumented in this encounter Care Teams Complaint Manager Relationship Specialty Start Date End Date Shalonda Hernandez MD [address] [address] PCP - General 12/05/14 07/03/22 Pcp, No PCP - General General Medicine 07/04/22 Steven Henderson MD [address] [facility] [address] [place] [address] Consulting Provider Rheumatology 02/14/15 documented as of this encounter
--- OUTSIDE RECORDS SUMMARY | 2025-01-31 12:23 | XMS_ITS | Encounter Summary ---
Author Organization [facility] [place] [facility] Address [address] [place] [address] Care Team Providers Care Brancher Name Role Phone Shalonda Hernandez MD Primary Care Provider Steven Henderson MD Unavailable [phone] Pcp, No Primary Care Provider Unavailabl e Encounter Details Date Type Department Care Team ([facility] Contact Info) Description 01/23/2016 Scanned Document [facility] Neurology [address] [place] [address] Umer Jain Jr., MD Retired Provider Social [...] on filedocumented in this encounter Care Teams Brancher Relationship Specialty Start Date End Date Shalonda Hernandez MD [address] [address] PCP - General 12/05/14 07/03/22 Pcp, No PCP - General General Medicine 07/04/22 Stveen Henderson MD [address] [place] [address] [address] [place] [id number] Consulting Provider Rheumatology 02/14/15 documented as of this encounter
--- OUTSIDE RECORDS SUMMARY | 2025-01-31 12:23 | XMS_ITS | Encounter Summary ---
Author Organization [facility] Address [address] [place] [address] Care Team Providers Care Port Captain Name Role Phone Shalonda Hernandez MD Primary Care Provider Steven Henderson MD Unavailable [phone] Pcp, No Primary Care Provider Unavailabl e Encounter Details Date Type Department Care Team ([facility] Contact Info) Description 04/03/2019 Scanned Document [facility] NEUROSURGERY SCAN Neurosurgery, Scan Social [...] on filedocumented in this encounter Care Teams Port Captain Relationship Specialty Start Date End Date Shalonda Hernandez MD [address] [place] [address] [address] [place] [address] PCP - General 12/05/14 07/03/22 Pcp, No PCP - General General Medicine 07/04/22 [place] [address] [place] [address] 1 [address] [place] [address] Consulting Provider Rheumatology 02/14/15 documented as of this encounter
--- OUTSIDE RECORDS SUMMARY | 2025-01-31 12:23 | XMS_ITS | Encounter Summary ---
Author Organization [facility] Address [address] [place] [address] Care Team Providers Care Health Actuary Name Role Phone Shalonda Hernandez MD Primary Care Provider [phone] Steven Henderson MD Unavailable Pcp, No Primary Care Provider Unavailabl e Encounter Details Date Type Department Care Team ([facility] Contact Info) Description 02/14/2015 Scanned Document [address] [phone] Provider, Generic Social History Tobacco Use Types [...] filedocumented in this encounter Care Teams Health Actuary Relationship Specialty Start Date End Date Shalonda Hernandez MD [address] [place] [address] [place] [phone] PCP - General 12/05/14 07/03/22 Pcp, No PCP - General General Medicine 07/04/22 Steven Henderson MD [address] [place] [address] [address] [place] [address] Consulting Provider Rheumatology 02/14/15 documented as of this encounter
--- OUTSIDE RECORDS SUMMARY | 2025-01-31 12:23 | XMS_ITS | Data Portability ---
Author Organization [facility], Main Office Address [address] [place] [address] Care Team Providers Care Spinning Operator Name Role Phone JOSH VELIZ Primary Care Provider Assessment No assessment recorded. Plan of Treatment Reminders Order Date Submit Date Provider Last Modified By Organization Details Last Modified Time Details Appointments None recorded. Lab None recorded. Referral None recorded. Procedures epidural steroid injection, lumbar (PROC) - please perform a L5-S1 epidural steroid injection 2017 018 [facility], [address], [place], [address], 8 09:25:11 Surgeries None recorded. Imaging None recorded. Medication Orders dexamethas one 2 mg tablet 2017 018 [facility]FACE [id number], [address] [place], [address], 8 09:14:28 Patient TargetsNo targets recorded. Patient Instructions Encounter Date Encounter Id Patient Instructions Last Modified By Organization Details Last Modified Time 11/26/2017 [id number] Susan is here for neurosurgical evaluation of [...] 9/10 at its worst. She has undergone child care supervisor with minimal improvement. She has undergone 6 [...] then a lumbar discectomy would be advised. [email or web address] Not available 12/01/2017 13:00:15 Reason for Referral None Reported. Problems Name Problem SNOMED Code Status Onset Date Resolution Date Notes Provider Name and Address Organization Details Recorded Time Lumbar radiculopath y 057820825 Active 2017 Jonathan Baker PA-C [address], [place], [address], [facility] 8 09:13:14 Degeneration of lumbar intervertebr al disc 92127051 Active 2017 Jonathan Baker PA-C [address], [place], [address], [facility] 8 17:16:59 Low back pain 229169268 Active 2017 Jonathan Baker PA-C [address], [place], [address], [facility] 8 17:17:00 Problem Notes None recorded. Medical Equipment None Reported. Allergies Allergen ID Allergen Name Allergen Category Reaction Reaction Severity Criticality Documentation Date Start Date Code Code System Note Provider Name and Address Organization Details Recorded Time 3979 shellfish derived food,medi cation Not available Not available Not available 11/26/2017 [facility] 08:47:04 Medications [...] Address Organization Details Last Updated DateTime 11/26/2017 77013.24 g 28 kg/m2 165.1 cm 98.2 [degF] Pamela David [facility] 11/26/2017 08:45:21 Social History Question Answer Notes LastModified by Organizat ion Details LastModified Time Tobacco Smoking Status Never Smoker [facility] 11/26/2017 08:50:44 What Is Your Level Of Caffeine Consumption? Occasional [email or web address] Information not available 11/26/2017 What Was The Date Of Your Most Recent Tobacco Screening? 11/26/2017 Information n ot available 10/14/2018 Sex: Unknown Functional Status Question Answer Note LastModified by Organization D etails LastModified Time What is your level of alcohol consumption? 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 Family History Relationship Description Onset Age of this Age Resolved Age Notes LastModified by Organization Details LastModified Time Mother Hypothyroidi sm [email or web address] Not available 11/26 08:49:24 Mother Asthma [email or web address] Not available 11/26/2017 08:49:36 Mother Arthritis [email or web address] Not availa ble 11/26/2017 08:49:47 Medical History Condition Response Coronary Artery Disease N Other Y Anxiety/Depression Y Parkinson's Disease N MRSA N Head Trauma/Injury Y Brain Tumors N PTSD N Anemia N Multiple Sclerosis N Meningitis N Spine/Back Problems N Heart Attack ([place]) N Neurological Problems N Diabetes N Anxiety Disorder N Bleeding Disorder N Arthritis N Tuberculosis [...] Diagnosis SNOMED-CT Code Diagnosis ICD10 Code Diagnosis IMO Codes Diagnosis Note [id number] Jonathan Baker PA-C Main Office [address] [place] [address] 11/26/2017 08:09:13 11/26/2017 09:22:09 Lumbar radiculopathy 063586491 M54.16 Degenerati on of lumbar intervertebral disc 87840628 M51.36 Low back pain 109014977 M54.5 Health Concerns Section Related Observation LastModified by Organization Detai ls LastModified Time None Recorded Concern Status LastModified by Organization Details LastModified Time None Recorded Advance Directives Directive None Recorded Payers Insurance Date Sequence Insurance Name Policy Number Policy Oliveira Covered Member ID Oliveira Member ID Guarantor Name 12/02/2017 1 MELYSSA [id number] Kristin Morris [id number] Susan Degrootdeborahjong Notes Date Note Type Note Provider Name and Address Organization Details Recorded Time 11/26/2017 text/html L-spineReported by PatientHPIFor associated symptoms, patient reportsweakness,numb ness,tingling, andradiation down legbut reportsno fever. For location, patient reportsright(lower back, shooting nerve pain down right posterior leg, pins/needles with numbness in right foot. patient feels she may have a right foot drop.). For quality, patient reportsstabbing,thro bbing,sharp, andworsening. For severity, patient reportssevere. For duration, patient reports3 months. For timing, patient reportsmorning,dayti me, andnighttime. For context, patient reportssports injury. For alleviating factors, patient reportspt/ot (currently attending, helps with muscle tightness but not with the nerve pain)(10 days of gabapentin 300mg tid trial, gave some relief). For aggravating factors, patient reportssitting (driving),standing,w alking,lifting, andbending/squatting (coughing, sneezing). For previous surgery, patient reportsnone. For prior imaging, patient reportsmri (lumbar spine jxr). For previous injections, patient reportsnone. For previous pt, patient reportshelped a little. For work related, patient reportsno. For working, patient reportsregular duty. Keith Pinto MD [address] [place] [address] [address], [place], [address], [place] [facility] 12/01/2017 13:00:32 OBGyn Episode No OBEpisode recorded.
== END 2025-01-31 11:17 | disposition home or self-care (01) ==
LOC: HO.PMC 10:34
PROVIDERS: PCP Nurse Practitioner Family; Visit Provider Nurse Practitioner Family
DX: M51.26 Other intervertebral disc displacement, lumbar region (principal); M54.41 Lumbago with sciatica, right side; M54.42 Lumbago with sciatica, left side; G89.29 Other chronic pain; M51.27 Other intervertebral disc displacement, lumbosacral region; M54.16 Radiculopathy, lumbar region
CPT/HCPCS: 99204